=== PATIENT | male | born 1945 | race Caucasian/White ===

== ENCOUNTER 2022-02-09 15:41 | Inpatient (IN) ==
--- NOTE | 2022-02-09 16:05 | Emergency Department Note ---
Impression & Plan CVA (cerebral vascular accident), Elevated BUN ED Provider Note NAME: MILDRED YEUNG AGE: 76 SEX: M : 1945 ARRIVES VIA: Walk-In INFORMANT: Patient ED PROVIDER(S): Salomon Lopez DO CHIEF COMPLAINT: dizzy HPI: Patient is a 76-year-old male who presents the ER for dizziness which occurred or Wednesday. Patient was seen evaluated in the ER and disc harged. He had a follow-up appoint with a PCP today which included blood work and a MR of his head. Patient was then referred in by his PCP who performed this. They are not too sure what was abnormal but they were referred in for an abnormality. He denies any headache or change in vision. No weakness or numbness in the arms or legs. No chest pain or shortness of breath. No nausea vomiting or diarrhea. No dysuria urgency or frequency. He feels much better on his feet than he did then but is still slightly off. ROS: See above HPI for pertinent positives & negatives. A total of 10 systems reviewed and were otherwise negative. PAST MEDICAL HISTORY:See Below PAST SURGICAL HISTORY:See Below FAMILY HISTORY:See Below SOCIAL HISTORY:See Below HOME MEDICATIONS:See Below ALLERGIES:See Below VITALS:See Below PHYSICAL EXAMINATION: GENERAL: Sitting up in bed, alert, well appearing, well nourished, no distress, non-toxic EYE EXAM: normal conjunctiva. PERRL and EOM's intact. OROPHARYNX: no exudate, no erythema, lips, buccal mucosa, and tongue normal and mucous membranes are moist NECK: supple, no nuchal rigidity, no adenopathy, non-tender LUNGS: Clear to auscultation. Normal chest wall mechanics HEART: no murmurs, S1 normal and S2 normal ABDOMEN: abdomen soft, non-tender, normo-active bowel sounds, no masses, no rebound or guarding. UPPER EXTREMITIES: upper extremities are grossly normal. LOWER EXTREMITIES: No pitting edema. NEURO EXAM: Normal sensorium, cranial nerves II-XII intact, normal speech, no weakness of arms, no weakness of legs. No drift. Gross sensation intact. MEDICAL DECISION MAKING: Patient is a 76-year-old male who presents the ER for CVA. Patient was seen and evaluated and discharged follow-up with his PCP and had an MRI which showed a cerebellar stroke. Symptoms started several days ago. IV was established blood was obtained. Labs show no significant leukocytosis or anemia. BMP along with LFTs bilirubin and lipase was unremarkable. UA was clean. Covid was negative. Reviewed outpatient Discussed with the hospitalist for further evaluation. As the symptoms started about 3 to 4 days ago do not feel he needs to be transferred at this time. Did discuss with Violette brand who discussed with neurology and they admit the patient for further work-up. Triage Nursing notes reviewed. Limited review of prior medical records performed Vital Signs: reviewed and remarkable for HTN Differential diagnosis: Infection, dehydration, metabolic abnormality, hypo/hyperglycemia, electrolyte disturbance, anemia, hypoxia, cardiac sources, intracerebral event, toxicologic, neurologic, as well as other pathologies. ER treatment provided: See below Diagnostics interpreted by me: ECG: none Cardiac Monitoring: An order was placed for continuous cardiac monitoring. The monitor shows a rate of 70 with sinus rhythm. Laboratory studies: As stated above and show below. Imaging studies: MRI report was reviewed as an outpatient Consultation(s): Discussed with Violette brand for further evaluation Procedures: none Critical Care: None Past Med/Surg History Medical History Hypothyroidism (acquired) Surgical History History of hernia surgery Family History Father Stroke Social History Smoking Status: Never smoker Hx Alcohol Use: No Hx Substance Use: No Preferred Language: Niuean Communication Ability: Effective Forest Manager Required: No Current Living Situation: Spouse Other Information That Helps Us Care for You: No Feels Safe at Home: Yes Safety Concerns: Feels Safe At This Time Assistive Devices: Glasses Home Meds Home Medications Medication Instructions Recorded Confirmed levothyroxine 75 mcg tablet 75 mcg PO DAILY 02/09/22 02/09/22 Results & Data (ED) Vital Signs Vital Signs - 24 hr 02/09/22 15:43 02/09/22 15:52 02/09/22 16:29 Temperature 37.0 C Temperature Source Temporal Artery Scan Pulse Rate 91 H 73 Pulse Rhythm Regular Pulse Strength Normal Respiratory Rate 20 18 Respiratory Effort / Characteristics Non-Labored Spontaneous Respiratory Depth Normal Respiratory Pattern Regular Blood Pressure 152/70 H Blood Pressure Mean 97 Blood Pressure Position Sitting Pulse Oximetry 96 97 94 Oxygen Delivery Method Room Air Room Air Room Air Sepsis Recent Fever Within 48 Hours No Sepsis New/Unexplained Change in Mental Status No Sepsis Action Taken by Nursing No Action Required Laboratory Data Result diagrams: 02/09/22 16:30 02/09/22 16:30 Lab Results 02/09/22 02/09/22 02/09/22 Range/Units 14:30 16:07 16:29 WBC (4.8-10.8) K/uL RBC (4.7-6.1) M/uL Hgb (14.0-18.0) g/dL Hct (42-52) % MCV (80-100) fL MCH (25-34) pg MCHC (32-36) g/dL RDW Std Deviation (36.4-46.3) fL RDW Coeff of Lamar (11.5-14.5) % Plt Count (130-400) K/uL MPV (7.4-10.4) fL Immature Gran % (Auto) % Neut % (Auto) % Lymph % (Auto) % [place] % (Auto) % Eos % (Auto) % Baso % (Auto) % Neut # (Auto) (1.4-6.5) K/uL Lymph # (Auto) (1.2-3.4) K/uL [place] # (Auto) (0.11-0.59) K/uL Eos # (Auto) (0-0.5) K/uL Baso # (Auto) (0-0.2) K/uL Immature Gran # (Auto) (0.00-0.02) K/uL Sodium (136-145) mmol/L Potassium (3.5-5.1) mmol/L Chloride (98-107) mmol/L Carbon Dioxide (21-32) mmol/L Anion Gap (3-11) BUN (6-23) mg/dl Creatinine (0.6-1.4) mg/dl Est Cr Clr Drug Dosing ml/min Est GFR ( Amer) ml/min Est GFR (Non-Af Amer) ml/min BUN/Creatinine Ratio (10-20) Glucose (70-99(Fasting)) mg/dl Calcium (8.5-10.1) mg/dl Total Bilirubin (0.2-1.0) mg/dl AST (13-39) U/L ALT (7-52) U/L Alkaline Phosphatase (34-104) U/L Total Protein (6.0-8.3) gm/dl Albumin (3.4-5.0) gm/dl Globulin (2.5-4.0) gm/dl Albumin/Globulin Ratio (0.9-2) Lipase (11-82) U/L TSH 1.043 (0.300-4.500) uIu/ml Urine Color Yellow Urine Appearance Clear (Clear) Urine pH 5.0 (4.5-7.5) Ur Specific [place] > 1.045 H (1.000-1.030) Urine Protein Negative (Negative) Urine Glucose (UA) Negative (Negative) Urine Ketones Negative (Negative) Urine Blood Negative (Negative) Urine Nitrite Negative (Negative) Urine Bilirubin Negative (Negative) Urine Urobilinogen Negative (Negative) Ur Leukocyte Esterase Negative (Negative) SARS-CoV-2, RNA, NAAT NEGATIVE (NEGATIVE) 02/09/22 02/09/22 Range/Units 16:30 16:30 WBC 9.15 (4.8-10.8) K/uL RBC 4.22 L (4.7-6.1) M/uL Hgb 13.1 L (14.0-18.0) g/dL Hct 39.5 L (42-52) % MCV 93.6 (80-100) fL MCH 31.0 (25-34) pg MCHC 33.2 (32-36) g/dL RDW Std Deviation 50.3 H (36.4-46.3) fL RDW Coeff of Lamar 14.8 H (11.5-14.5) % Plt Count 248 (130-400) K/uL MPV 11.1 H (7.4-10.4) fL Immature Gran % (Auto) 0.2 % Neut % (Auto) 66.1 % Lymph % (Auto) 25.4 % [place] % (Auto) 6.1 % Eos % (Auto) 1.9 % Baso % (Auto) 0.3 % Neut # (Auto) 6.05 (1.4-6.5) K/uL Lymph # (Auto) 2.32 (1.2-3.4) K/uL [place] # (Auto) 0.56 (0.11-0.59) K/uL Eos # (Auto) 0.17 (0-0.5) K/uL Baso # (Auto) 0.03 (0-0.2) K/uL Immature Gran # (Auto) 0.02 (0.00-0.02) K/uL Sodium 137 (136-145) mmol/L Potassium 4.0 (3.5-5.1) mmol/L Chloride 103 (98-107) mmol/L Carbon Dioxide 28 (21-32) mmol/L Anion Gap 6 (3-11) BUN 26 H (6-23) mg/dl Creatinine 1.04 (0.6-1.4) mg/dl Est Cr Clr Drug Dosing 48.6 ml/min Est GFR ( Amer) 80.5 ml/min Est GFR (Non-Af Amer) 69.4 ml/min BUN/Creatinine Ratio 25.0 H (10-20) Glucose 122 H (70-99(Fasting)) mg/dl Calcium 9.5 (8.5-10.1) mg/dl Total Bilirubin 1.1 H (0.2-1.0) mg/dl AST 24 (13-39) U/L ALT 17 (7-52) U/L Alkaline Phosphatase 47 (34-104) U/L Total Protein 6.7 (6.0-8.3) gm/dl Albumin 4.2 (3.4-5.0) gm/dl Globulin 2.5 (2.5-4.0) gm/dl Albumin/Globulin Ratio 1.7 (0.9-2) Lipase 25 (11-82) U/L TSH (0.300-4.500) uIu/ml Urine Color Urine Appearance (Clear) Urine pH (4.5-7.5) Ur Specific [place] (1.000-1.030) Urine Protein (Negative) Urine Glucose (UA) (Negative) Urine Ketones (Negative) Urine Blood (Negative) Urine Nitrite (Negative) Urine Bilirubin (Negative) Urine Urobilinogen (Negative) Ur Leukocyte Esterase (Negative) SARS-CoV-2, RNA, NAAT (NEGATIVE) Administered Medications Aspirin (Aspirin 81 Mg Ectab) 81 mg PO DAILY TAY Stop: 03/11/22 18:59 Last Admin: 02/09/22 20:00 Dose: 81 mg Documented by: [id number] Atorvastatin Calcium (Atorvastatin 40 Mg Tab) 40 mg PO [facility] Stop: 03/11/22 18:44 Last Admin: 02/09/22 20:00 Dose: 40 mg Documented by: [id number] Clopidogrel Bisulfate (Clopidogrel Bisulfate 75 Mg Tab) 75 mg PO [facility] Stop: 03/11/22 18:59 Last Admin: 02/09/22 20:00 Dose: 75 mg Documented by: [id number] Discontinued Medications Aspirin (Aspirin 81 Mg Ectab) 81 mg PO NOW STA Stop: 02/09/22 17:30 Last Admin: 02/09/22 17:50 Dose: 81 mg Documented by: [id number] Clopidogrel Bisulfate (Clopidogrel Bisulfate 75 Mg Tab) 75 mg PO NOW ONE Stop: 02/09/22 17:30 Last Admin: 02/09/22 17:50 Dose: 75 mg Documented by: [id number] Discharge Plan Visit Data Chief Complaint: Abnormal Labs/Diagnostic Testing Stated Complaint: ABNORMAL TESTS ED Provider: Salomon Lopez Discharge Problem: CVA (cerebral vascular accident), Elevated BUN Patient Disposition: Admitted As Inpatient Discharge Instructions Interventions: ED Discharge Assessment Last Done: 02/09/22 18:06 Discharge Problem: CVA (cerebral vascular accident) Qualifiers: CVA mechanism: unspecified Qualified Code(s): I63.9 - Cerebral infarction, unspecified
[2022-02-09 16:32] LABS: Appearance Urine Clear (Clear); Bilirubin Urine Negative (Negative); Blood Urine Negative (Negative); Color Urine Yellow; Glucose Urine UA Negative (Negative); Ketones Urine Negative (Negative); Leukocyte Esterase Urine Negative (Negative); Nitrite Urine Negative (Negative); Protein Urine Negative (Negative); Specific Gravity Urine > 1.045 (1.000-1.030); Urobilinogen Urine Negative (Negative)
--- NOTE | 2022-02-09 16:35 | History & Physical Report ---
Date of Service February 09, 2022 Assessment & Plan (1) CVA (cerebral vascular accident): Plan: Admit to telemetry Patient developed dizziness and difficulty ambulating about 3 days ago. Dizziness has resolved however ambulatory dysfunction has persisted. 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 Discussed with Dr. Sherman - lori ASA, Plavix, statin Echo Repeat head CT in the a.m. 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 Patient was seen in the ED on 02/06 for evaluation of sudden onset dizziness and difficulty walking. Patient had a head CT that was unremarkable and was discharged home to follow-up with PCP. Patient was seen in PCP office today and noted that he was still having difficulty ambulating, however dizziness had resolved. Brain MRI and head and neck CTs were obtained as an outpatient with results previously noted. Patient was referred to the ED for further evaluation. Patient denies headache and blurred vision. No lightheadedness or syncopal event. Denies chest pain or shortness of breath. No abdominal pain, nausea, vomiting, diarrhea. No other recent illnesses, fevers, chills. Denies urinary symptoms. In the ED, patient is hemodynamically stable. Labs are unremarkable. Home Medications Medication Instructions Recorded Confirmed Type levothyroxine 75 mcg tablet 75 mcg PO DAILY 02/09/22 02/09/22 History Past Med/Surg History Medical History Hypothyroidism (acquired) Surgical History History of hernia surgery Family History Father Stroke Social History Smoking Status: Never smoker Hx Alcohol Use: No Hx Substance Use: No Preferred Language: Greek Communication Ability: Effective Environmental Remediation Specialist Required: No marital status: Current Living Situation: Spouse How many Children do You have: 1 Other Information That Helps Us Care for You: No Feels Safe at Home: Yes Safety Concerns: Feels Safe At This Time Assistive Devices: None Review of Systems Review of Systems: ROS per HPI, all other systems reviewed and negative Physical Exam Physical Exam: please refer to Dr. Singh's addendum for physical exam Results & Data Results & Data ([facility]) Vital Signs (Past 12 Hours) Vital Signs Temp Pulse Resp BP Pulse Ox 02/09/22 16:29 94 02/09/22 15:52 73 18 97 02/09/22 15:43 37.0 C 91 H 20 152/70 H 96 Laboratory Results Short CBC 02/09/22 Range/Units 16:30 WBC 9.15 (4.8-10.8) K/uL Hgb 13.1 L (14.0-18.0) g/dL Hct 39.5 L (42-52) % Plt Count 248 (130-400) K/uL BMP 02/09/22 16:30 Sodium 137 Potassium 4.0 Chloride 103 Carbon Dioxide 28 BUN 26 H Creatinine 1.04 Glucose 122 H Calcium 9.5 Liver Function 02/09/22 Range/Units 16:30 Total Bilirubin 1.1 H (0.2-1.0) mg/dl AST 24 (13-39) U/L ALT 17 (7-52) U/L Alkaline Phosphatase 47 (34-104) U/L Albumin 4.2 (3.4-5.0) gm/dl Urine 02/09/22 Range/Units 16:07 Urine Color Yellow Urine Appearance Clear (Clear) Urine pH 5.0 (4.5-7.5) Ur Specific [place] > 1.045 H (1.000-1.030) Urine Protein Negative (Negative) Urine Glucose (UA) Negative (Negative) Diagnostic Findings Outpatient brain MRI 02/09/2022 IMPRESSION 1. Restricted diffusion within the posteroinferior right cerebellum, worrisome for an acute to early subacute infarction. Mild localized mass effect. 2. Mild to moderate global volume loss and findings most commonly associated with mild chronic small vessel disease. 3. Abnormal right vertebral artery flow void. Please refer to the CTA of the head neck dated 02/09/2022. Outpatient head and neck CTA 02/09/2022 IMPRESSION 1. Subacute infarction within the posteroinferior right cerebellum. 2. 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 Recanalization of the V2 segment of the right vertebral artery at the level of C3-C4. Narrowing of the V3 segment of the right vertebral artery. 3. Mild to moderate stenosis of the origin of the left vertebral artery. 4. Additional findings as described above. Code Status & VTE Plan Code Status Patient is a full code as per my discussion with him. Patient states that his , Sheyla, would make decisions for him on his behalf if he were to be unable to. Supervising Physician Co-Signing Physician Notes Patient is a 76-year-old male with history of hypothyroidism and no other significant past medical history presents with history of dizziness, ambulatory dysfunction 3 days duration. Patient had outpatient MRI brain head and neck CTA suggestive of acute to subacute CVA. Patient had a fall secondary to dizziness 3 days ago resulting in mild head trauma. He denies any facial deformity, dysphagia, bowel or bladder incontinence, loss of consciousness, change in vision, chest pain, shortness of breath, nausea, abdominal pain, fever, chills. He denies any focal weakness as well. Please review HPI for complete details of presentation. Blood pressure is mildly elevated while in ED. Blood work fairly unremarkable. On patient imaging studies reviewed. Physical Exam: Vitals signs as noted above General Appearance:Moderately built and nourished, no apparent distress Head: normocephalic, Atraumatic Eyes: normal inspection, EOMI Neck: supple, Trachea midline Respiratory/Chest: Normal breath sounds, CTA, No accessory muscle use Cardiovascular: S1, S2, No murmur Abdomen/GI:Soft, Non tender, Bowel sounds present Extremities/Musculoskeletal:normal inspection, no edema Neurologic/Psych:AAOX3, grossly no focal neurological deficits, + dysdiadochokinesia Skin: normal color, warm Acute CVA Not a candidate for tPA Stroke work up including lipid panel, A1C, ECHO Speech and swallow eval Start aspirin, plavix, Lipitor Neuro checks, Neurology consult PT/OT Allow permissive HTN in setting of acute CVA I personally reviewed the record. Patient is interviewed and examined at bedside. Patient's care is coordinated with Violette Hernandez PHYSICAL PLANT MANAGER. Please refer to the documentation above for details of patient's presentation and for discussion of other issues.
[2022-02-09 16:42] LABS: Basophils # (auto) 0.03 K/uL (0-0.2); Basophils % (auto) 0.3 %; Eosinophils # (auto) 0.17 K/uL (0-0.5); Eosinophils % (auto) 1.9 %; Hematocrit (blood only) 39.5 % (42-52); Hemoglobin 13.1 g/dL (14.0-18.0); Immature Granulocytes # (auto) 0.02 K/uL (0.00-0.02); Immature Granulocytes % (auto) 0.2 %; Lymphocytes # (auto) 2.32 K/uL (1.2-3.4); Lymphocytes % (auto) 25.4 %; Mean Corpuscular Hgb Conc 33.2 g/dL (32-36); Mean Corpuscular Volume 93.6 fL (80-100); Mean Platelet Volume 11.1 fL (7.4-10.4); Monocytes # (auto) 0.56 K/uL (0.11-0.59); Monocytes % (auto) 6.1 %; Neutrophils # (auto) 6.05 K/uL (1.4-6.5); Neutrophils % (auto) 66.1 %; Platelet Count 248 K/uL (130-400); RDW Coefficient of Variation 14.8 % (11.5-14.5); RDW Standard Deviation 50.3 fL (36.4-46.3); Red Blood Count 4.22 M/uL (4.7-6.1); White Blood Count 9.15 K/uL (4.8-10.8)
[2022-02-09 16:58] LABS: Albumin Globulin Ratio 1.7 (0.9-2); Albumin Level 4.2 gm/dl (3.4-5.0); Bilirubin,Total 1.1 mg/dl (0.2-1.0); Calcium 9.5 mg/dl (8.5-10.1); Creatinine Clr Calc Pharmacy 48.6 ml/min; Est GFR (African American) 80.5 ml/min; Est GFR (Non-African American) 69.4 ml/min; Globulin 2.5 gm/dl (2.5-4.0); Total Protein 6.7 gm/dl (6.0-8.3)
[2022-02-09] MEDS ORDERED: ASPIRIN 81 MG ECTAB PO STA (17:29)
[2022-02-09] MEDS ORDERED: CLOPIDOGREL BISULFATE 75 MG TAB PO ONE (17:29)
[2022-02-09] MEDS ORDERED: PHARMACIST DISCHARGE MED REC CONSULT PRN (18:24)
[2022-02-09] MEDS ORDERED: ACETAMINOPHEN 325 MG TAB PO PRN (18:24)
[2022-02-09] MEDS ORDERED: INFLUENZA VACCINE HIGH DOSE PF 65+ 0.7 ML SYR IM ONE (20:00)
[2022-02-09] MEDS: ASPIRIN 81 MG ECTAB PO SCH (20:00)
[2022-02-09] MEDS: ATORVASTATIN 40 MG TAB PO SCH (20:00)
[2022-02-09] MEDS: CLOPIDOGREL BISULFATE 75 MG TAB PO SCH (20:00)
[2022-02-10] MEDS ORDERED: LEVOTHYROXINE SODIUM 75 MCG TABLET PO SCH (06:30)
[2022-02-10 06:34] LABS: Basophils # (auto) 0.02 K/uL (0-0.2); Basophils % (auto) 0.3 %; Eosinophils % (auto) 5.3 %; Hemoglobin 11.6 g/dL (14.0-18.0); Immature Granulocytes # (auto) 0.01 K/uL (0.00-0.02); Immature Granulocytes % (auto) 0.1 %; Lymphocytes # (auto) 1.71 K/uL (1.2-3.4); Lymphocytes % (auto) 22.7 %; Mean Corpuscular Hemoglobin 30.8 pg (25-34); Mean Corpuscular Hgb Conc 33.1 g/dL (32-36); Mean Corpuscular Volume 92.8 fL (80-100); Mean Platelet Volume 10.7 fL (7.4-10.4); Monocytes # (auto) 0.71 K/uL (0.11-0.59); Monocytes % (auto) 9.4 %; Neutrophils # (auto) 4.68 K/uL (1.4-6.5); Neutrophils % (auto) 62.2 %; Platelet Count 234 K/uL (130-400); RDW Coefficient of Variation 14.6 % (11.5-14.5); RDW Standard Deviation 49.6 fL (36.4-46.3); Red Blood Count 3.77 M/uL (4.7-6.1); White Blood Count 7.53 K/uL (4.8-10.8)
[2022-02-10 07:02] LABS: BUN Creatinine Ratio 29.5 (10-20); Calcium 9.2 mg/dl (8.5-10.1); Chol HDL Ratio 3.1 (0-5); Creatinine Clr Calc Pharmacy 48.7 ml/min; Est GFR (African American) 89.8 ml/min; Est GFR (Non-African American) 77.4 ml/min; Potassium 4.7 mmol/L (3.5-5.1)
[2022-02-10 08:10] LABS: Estimated Average Glucose 117 mg/dl; Hemoglobin A1C 5.7 % (4.5-5.6)
--- NOTE | 2022-02-10 08:15 | CT Scan Report ---
CT head/brain wo con CLINICAL HISTORY: 76 years-old Male with f/u CVA. Acute strokelike symptoms. Follow up study in a pa tient with acute right cerebellar infarct. TECHNIQUE: Multiple axial CT images of the head were obtained without contrast. A dose lowering tech nique was utilized adhering to the principles of ALARA. CT DOSE: 537.48 mGy.cm COMPARISON: Brain MRI from outside institution (images only without report) 02/09/2022, head CT 022. FINDINGS: No acute intracranial hemorrhage, midline shift, intracranial mass, hydrocephalus, or abnormal extra- axial collection. Cytotoxic edema related to an acute infarct of the medial mid to inferior right cer ebellar hemisphere measuring up to approximately 3.4 x 3.7 cm is unchanged. No cerebellar tonsillar h erniation. Mild involutional changes. Minimal T2/FLAIR hyperintense foci throughout the white matter are suggestive of chronic microvascular ischemic disease. The calvarium is intact. Prior left-sided lens repair. The paranasal sinuses, mastoid air cells, and middle ear cavities are clear. IMPRESSION: Unchanged large acute infarct of the right cerebellar hemisphere. No acute intracranial hemorrhage. ACT 112: Negative or not required by law. The above report was generated using voice recognition software. It may contain grammatical, syntax o r spelling errors. Electronically signed by: Gagandeep Ochoa M.D. 02/10/2022 8:13 AM
[2022-02-10] MEDS: ATORVASTATIN 40 MG TAB PO SCH (08:58)
[2022-02-10] MEDS: ASPIRIN 81 MG ECTAB PO SCH (08:58)
[2022-02-10] MEDS: CLOPIDOGREL BISULFATE 75 MG TAB PO SCH (08:58)
--- NOTE | 2022-02-10 12:32 | Neurology Consultation ---
Date of Consultation February 10, 2022 Assessment & Plan (1) CVA (cerebral vascular accident): 1. start plavix 75 mg and aspirin 81 mg daily then aspirin 81 mg for life 2. MRI brain - right cerebellum stroke 3. occlusion V1-2 right vert. 4. PT/OT speech for discharge needs 5. optimize HTN HLD LDL <70 6. ZIO as outpatient will follow up with neurology 4-6 weeks ok to discharge when medically stable. Supervising Physician Co-Signing Physician Notes Patient was seen examined. Admitted with right cerebellar stroke due to right vertebral artery occlusion. No ataxia with finger to nose. No prior history of stroke. Start DAP x21 days then ASA 81 mg daily. Start Liptor 40 mg daily. Zio patch as outpatient. Follow up with Neurology in 8 weeks. 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 He was seen in the ED on 02/06 for evaluation of sudden onset dizziness and difficulty walking.At that time his head CT that was unremarkable and was discharged home to follow- up with PCP. He was seen in PCP office today and noted that he was still having difficulty ambulating, however dizziness had resolved. Brain MRI and head and neck CTs were obtained as an outpatient, and referred to the ED for further evaluation. He is currently sitting bedside and thinks he is near his baseline. He has been OOB to the bathroom with no assistance and no difficulty. denies CP, SOB, abdom inal pain, one sided weakness, numbness tingling vision changes. Home Medications Medication Instructions Recorded Confirmed Type levothyroxine 75 mcg tablet 75 mcg PO DAILY 02/09/22 02/09/22 History aspirin 81 mg tablet,delayed 81 mg PO DAILY #30 tab 02/10/22 Rx release atorvastatin 40 mg tablet 40 mg PO QAM #30 tab 02/10/22 Rx clopidogrel 75 mg tablet 75 mg PO QAM #20 tab 02/10/22 Rx Patient History Medical History Hypothyroidism (acquired) Surgical History History of hernia surgery Family History Father Stroke Social History Smoking Status: Never smoker Hx Alcohol Use: No Hx Substance Use: No Preferred Language: [place] Communication Ability: Effective 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 Laborer Required: No marital status: Current Living Situation: Spouse How many Children do You have: 1 Other Information That Helps Us Care for You: No Feels Safe at Home: Yes Safety Concerns: Feels Safe At This Time Assistive Devices: None Review of Systems Review of Systems: All systems reviewed & are unremarkable except as noted in HPI & below Physical Exam Physical Exam: Physical Exam: Constitutional: appearance nourished, healthy Ears, Nose, Mouth and Throat: mucous membranes moist, no injection and skin normal, eyes normal Cardiovascular: normal S-1 and S-2 and regular rate and rhythm Respiratory: clear to auscultation (CTA) and no rales, ronchi or wheeze Musculoskeletal: no peripheral edema and good distal pulses Skin: no stigmata of neurocutaneous disease noted and normal and intact Eyes: extraocular muscles intact (EOMI) and pupils equal, round and reactive to light (PERRL) NEUROLOGIC EXAMINATION: Mental status: Alert and interactive Oriented to full date and location Oriented to person Speech fluent with no evidence of aphasia Cranial Nerves smile eye brow raise symmetric Reflexes: Deep tendon reflexes were symmetrical and graded 2/5. Sensory: intact to light touch Coordination: finger to nose heel to cutler intact Gait/Stance: Posture normal. Gait normal: with steady with steps, base, turning, and tandem gait. Motor: Negative for pronator drift of out stretched arms with eyes closed. Strength: hand plug stitcher biceps tricep bilaterally 5/5, hip flex 5/5 Results & Data ([facility]) Vital Signs (Past 12 Hours) Vital Signs Temp Pulse Pulse Resp BP Pulse Ox 02/10/22 11:30 36.8 C 69 19 114/63 98 02/10/22 08:09 36.7 C 62 19 167/70 H 97 02/10/22 08:00 56 L 02/10/22 04:19 36.6 C 50 L 18 156/71 H 97 Laboratory Results Abnormal lab results 02/09/22 02/09/22 02/09/22 Range/Units 16:07 16:30 16:30 RBC 4.22 L (4.7-6.1) M/uL Hgb 13.1 L (14.0-18.0) g/dL Hct 39.5 L (42-52) % RDW Std Deviation 50.3 H (36.4-46.3) fL RDW Coeff of Lamar 14.8 H (11.5-14.5) % MPV 11.1 H (7.4-10.4) fL [place] # (Auto) (0.11-0.59) K/uL BUN 26 H (6-23) mg/dl BUN/Creatinine Ratio 25.0 H (10-20) Glucose 122 H (70-99(Fasting)) mg/dl Hemoglobin A1c (4.5-5.6) % Total Bilirubin 1.1 H (0.2-1.0) mg/dl Ur Specific [place] > 1.045 H (1.000-1.030) 02/10/22 02/10/22 02/10/22 Range/Units 06:18 06:18 06:18 RBC 3.77 L (4.7-6.1) M/uL Hgb 11.6 L (14.0-18.0) g/dL Hct 35.0 L (42-52) % RDW Std Deviation 49.6 H (36.4-46.3) fL RDW Coeff of Lamar 14.6 H (11.5-14.5) % MPV 10.7 H (7.4-10.4) fL [place] # (Auto) 0.71 H (0.11-0.59) K/uL BUN 28 H (6-23) mg/dl BUN/Creatinine Ratio 29.5 H (10-20) Glucose (70-99(Fasting)) mg/dl Hemoglobin A1c 5.7 H (4.5-5.6) % Total Bilirubin (0.2-1.0) mg/dl Ur Specific [place] (1.000-1.030) Diagnostic Findings CT CTA head/neck- EPIC 02/09/22-Subacute infarction within the posteroinferior right cerebellum. 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 Recanalization of the V2 segment of the right vertebral artery at the level of C3-C4. Narrowing of the V3 segment of the right vertebral artery. Mild to moderate stenosis of the origin of the left vertebral artery. MRI brain without EPIC 02/09/22-Restricted diffusion within the posteroinferior right cerebellum, worrisome for an acute to early subacute infarction. Mild localized mass effect. Mild to moderate global volume loss and findings most commonly associated with mild chronic small vessel disease. Abnormal right vertebral artery flow void. TTE- 55-60% EF no ASD (1) CVA (cerebral vascular accident) CVA mechanism: unspecified Qualified Code(s): I63.9 - Cerebral infarction, unspecified
--- NOTE | 2022-02-10 13:37 | Hospitalist Progress Note ---
Date of Service February 10, 2022 Assessment & Plan (1) CVA (cerebral vascular accident): Plan: Acute CVA --Outpatient brain MRI and head and neck CTAs showing right cerebellum acute to early subacute infarction and V1 and V2 segments of the right vertebral artery are occluded. --CT Head:Unchanged large acute infarct of the right cerebellar hemisphere. No acute intracranial hemorrhage. --ECHO:No ASD. EF 55 to 60%. Mild concentric LVH. Grade 1 diastolic dysfunction. Mild MR. Mild to moderate TR. --LDL:117 --HbA1C:5.7 --Appreciate Neurology Input --PT/OT Speech Eval completed --Continue Aspirin, Plavix, Statin --Needs follow up with Neurology upon discharge Prediabetes HbA1C:5.7 (2) Hypothyroidism (acquired): Plan: TSH 1.26 continue levothyroxine (3) DVT prophylaxis: Plan: SCDs for now Admission and Anticipated Discharge Date Admission Date: February 09, 2022 Subjective Patient is seen and examined at bedside States feeling much better today Denies any focal weakness, change in vision, slurred speech, headache, dizziness, chest pain, shortness of breath, nausea, abdominal pain Offers no other complaints Discussed with Neurology today Review of Systems Review of Systems: All systems reviewed & are unremarkable except as noted in Subjective Physical Exam Physical Exam: Physical Exam: Vitals signs as noted above General Appearance:Moderately built and nourished, no apparent distress Head: normocephalic, Atraumatic Eyes: normal inspection, EOMI Neck: supple, Trachea midline Respiratory/Chest: Normal breath sounds, CTA, No accessory muscle use Cardiovascular: S1, S2, No murmur Abdomen/GI:Soft, Non tender, Bowel sounds present Extremities/Musculoskeletal:normal inspection, no edema Neurologic/Psych:AAOX3, grossly no focal neurological deficits, + dysdiadochokinesia Skin: normal color, warm Results & Data Results & Data ([facility]) Vital Signs (Past 12 Hours) Vital Signs Temp Pulse Pulse Resp BP Pulse Ox 02/10/22 11:30 36.8 C 69 19 114/63 98 02/10/22 08:09 36.7 C 62 19 167/70 H 97 02/10/22 08:00 56 L 02/10/22 04:19 36.6 C 50 L 18 156/71 H 97 Laboratory Results Short CBC 02/09/22 02/10/22 Range/Units 16:30 06:18 WBC 9.15 7.53 (4.8-10.8) K/uL Hgb 13.1 L 11.6 L (14.0-18.0) g/dL Hct 39.5 L 35.0 L (42-52) % Plt Count 248 234 (130-400) K/uL BMP 02/09/22 02/10/22 16:30 06:18 Sodium 137 138 Potassium 4.0 4.7 Chloride 103 105 Carbon Dioxide 28 29 BUN 26 H 28 H Creatinine 1.04 0.95 Glucose 122 H 93 Calcium 9.5 9.2 Liver Function 02/09/22 Range/Units 16:30 Total Bilirubin 1.1 H (0.2-1.0) mg/dl AST 24 (13-39) U/L ALT 17 (7-52) U/L Alkaline Phosphatase 47 (34-104) U/L Albumin 4.2 (3.4-5.0) gm/dl Urine 02/09/22 Range/Units 16:07 Urine Color Yellow Urine Appearance Clear (Clear) Urine pH 5.0 (4.5-7.5) Ur Specific [place] > 1.045 H (1.000-1.030) Urine Protein Negative (Negative) Urine Glucose (UA) Negative (Negative) (1) CVA (cerebral vascular accident) CVA mechanism: unspecified Qualified Code(s): I63.9 - Cerebral infarction, unspecified
[2022-02-10] MEDS ORDERED: STROKE PATIENT DISCHARGE STA (16:23)
--- NOTE | 2022-02-10 16:28 | Discharge Summary ---
Date of Service February 10, 2022 Admission HPI Per Admitting Provider 76 year old male with PMH hypothyroidism and other problems listed below who presents to the ED by referral of PCP for evaluation after outpatient brain MRI and head/neck CTA showed right cerebellum acute to early subacute infarction and V1 and V2 segments of the right vertebral artery are occluded. Patient was seen in the ED on 02/06 for evaluation of sudden onset dizziness and difficulty walking. Patient had a head CT that was unremarkable and was discharged home to follow-up with PCP. Patient was seen in PCP office today and noted that he was still having difficulty ambulating, however dizziness had resolved. Brain MRI and head and neck CTs were obtained as an outpatient with results previously noted. Patient was referred to the ED for further evaluation. Patient denies headache and blurred vision. No lightheadedness or syncopal event. Denies chest pain or shortness of breath. No abdominal pain, nausea, vomiting, diarrhea. No other recent illnesses, fevers, chills. Denies urinary symptoms. In the ED, patient is hemodynamically stable. Labs are unremarkable. Admission Exam Per Admitting Provider Physical Exam: Vitals signs as noted above General Appearance:Moderately built and nourished, no apparent distress Head: normocephalic, Atraumatic Eyes: normal inspection, EOMI Neck: supple, Trachea midline Respiratory/Chest: Normal breath sounds, CTA, No accessory muscle use Cardiovascular: S1, S2, No murmur Abdomen/GI:Soft, Non tender, Bowel sounds present Extremities/Musculoskeletal:normal inspection, no edema Neurologic/Psych:AAOX3, grossly no focal neurological deficits, + dysdiadochokinesia Skin: normal color, warm Principal Diagnosis Acute cerebrovascular accident Discharge Data Consultations 02/09/22 16:35 ED Decision to Admit Stat 02/09/22 18:24 Consult Neurology Routine Ordered Studies 02/10/22 08:00 CT head/brain wo con Routine Hospital Course (1) CVA (cerebral vascular accident): (1) CVA (cerebral vascular accident): Plan: Acute CVA --Outpatient brain MRI and head and neck CTAs showing right cerebellum acute to early subacute infarction and V1 and V2 segments of the right vertebral artery are occluded. --CT Head:Unchanged large acute infarct of the right cerebellar hemisphere. No acute intracranial hemorrhage. --ECHO:No ASD. EF 55 to 60%. Mild concentric LVH. Grade 1 diastolic dysfunction. Mild MR. Mild to moderate TR. --LDL:117 --HbA1C:5.7 --Appreciate Neurology Input --PT/OT Speech Eval completed --Continue Aspirin, Plavix, Statin --Needs follow up with Neurology upon discharge Prediabetes HbA1C:5.7 (2) Hypothyroidism (acquired): Plan: TSH 1.26 continue levothyroxine (3) DVT prophylaxis: Plan: SCDs for now Total Time Total Time Spent Total Time Spent (In Minutes): 43 minutes Discharge Plan Discharge Items Patient Disposition: Home - Self-Care Reason For Visit: CVA Discharge Diagnosis: Stroke Activity: Per Instructions section Exercise/Sports: Gradually increase as tolerated Non-emergency contact: Primary Care Provider and Neurologist Call non-emergency contact if: you have any medication questions, your symptoms worsen, your pain is concerning for you and you have a fever Follow-up/Referrals: Giana Tan PA-C [Physician Auto Collision Repair Instructor] - (Date & Time 03/09/2022 11:20 AM Provider Giana Tan PA-C Department Neurology [facility] ) Ismael Vasquez PA-C [Primary Care Provider] - (Date & Time 02/16/2022 11:00 AM Provider Mary Grace Jain MD Department General Internal Medicine [facility] ) Diet: Heart Healthy Addtl Attending Provider Instructions: Follow up with your Primary Care Physician Ismael Vasquez PA-C on 02/16/2022 11:00 AM Follow up with your Neurologist Giana Tan PA-C on 03/09/2022 11:20 AM --Take aspirin 81 mg and clopidogrel 75 mg daily for 3 weeks and then start taking aspirin 81 mg daily only --Start taking Lipitor 40 mg daily. Seek immediate medical attention if your symptoms reoccur or worsen Please take all medications as instructed on discharge list below. Please call if you have any questions or problems. You can reach a [facility] hospitalist on duty at [facility] 24 hours a day by calling [phone] Risk Factors for Stroke: You can reduce your chances of stroke by working with your medical provider to adopt a healthy lifestyle. Some specific ways to lower your chance of stroke are: * If you are a smoker, now is the time to stop smoking cigarettes * If you are diabetic, improve the control of your blood sugars * Avoid excessive amounts of alcohol * Control high blood pressure * Lose weight if you are overweight * Be sure to lead an active lifestyle * Eat a healthy diet low in salt, cholesterol and fat You should know about other risk factors for stroke that you are unable to control. These include: * Age 55 years or older * Male gender * Certain racial groups: , or / * Family History of Stroke, Mini stroke or Heart Attack * Sickle Cell Disease Follow Up: It is important for you to keep your follow up appointments with your medical provider. Who to Call and When: Medical Emergencies: Call 911 immediately if you experience any of the following warning signs and symptoms of Stroke: * Sudden numbness or weakness of the face, arm or leg, especially on one side of the body * Sudden confusion, trouble speaking or understanding * Sudden trouble seeing in one or both eyes * Sudden trouble walking, dizziness, loss of balance or coordination * Sudden severe headache with no cause Do not delay calling 911 if you experience any warning signs or symptoms of a stroke. Delay in seeking medical attention may affect what treatments can be given to you. . Pending Studies at Discharge: No Stand-Alone Forms: My [facility] [employer], Work/School Release, Smoking Cessation Medications and DC Order Prescriptions: New clopidogrel 75 mg Tablet 75 mg PO QAM Qty: 20 RF: 0 atorvastatin 40 mg Tablet 40 mg PO QAM Qty: 30 RF: 1 aspirin 81 mg Tablet,Delayed Release (Dr/Ec) 81 mg PO DAILY Qty: 30 RF: 1 Continued levothyroxine 75 mcg tablet 75 mcg PO DAILY RF: 0 Discharge Orders: Discharge Order (Routine); Ordered 02/10/22 Ordered By: Vijay Singh Admission Data Admit Date/Time: 02/09/22 17:01 Attending Provider: Vijay Singh Admit Provider: Vijay Singh Primary Care Provider: Ismael Vasquez Other Providers: Vijay Singh ; Michele Sherman
--- NOTE | 2022-02-10 17:01 | Pharmacy Report ---
Pharmacist Stroke Counseling - Date of Service February 10, 2022 - Scope: Pharmacy has been consulted to provide medication discharge counseling for this patient admitted with ischemic stroke as per the Pharmacist Discharge Counseling for Stroke Patients Protocol. - Medications on Discharge: Home Medications Medication Instructions Recorded Confirmed levothyroxine 75 mcg tablet 75 mcg PO DAILY 02/09/22 02/09/22 New Rx's Medication Instructions Recorded aspirin 81 mg tablet,delayed 81 mg PO DAILY #30 tab 02/10/22 release atorvastatin 40 mg tablet 40 mg PO QAM #30 tab 02/10/22 clopidogrel 75 mg tablet 75 mg PO QAM #20 tab 02/10/22 - Action: The above medications, specifically ones for stroke treatment/prophylaxis, have been reviewed in detail with the patient and/or patient sales representative metals(s) prior to discharge. This includes indication, common adverse reactions, drug interactions, and medication administration. Medication counseling has been employed using the teach-back method to ensure understanding. - Outcome: The patient and/or patient sales representative metals(s) have demonstrated understanding of the medications. Additional comments: - Pillbox provided - Reviewed new medications (atorvastatin, aspirin, and clopidogrel) - Plavix and aspirin for 20 days and then aspirin alone - No obvious barriers to medication compliance identified Thank you for allowing pharmacy to be involved in the care of this patient. Please call [phone] with any additional questions
== END 2022-02-10 17:58 | disposition home or self-care (01) | DRG 66 ==
LOC: ED 15:41 → 2S 17:01 → OBSVTOIN 17:01 → INTOOBSV 17:01 → 2S 18:06

== ENCOUNTER 2022-08-11 19:43 | Inpatient (IN) ==
[2022-08-11 21:23] LABS: INR 1.1 (0.9-1.1); Partial Thromboplastin Ratio 0.8; Partial Thromboplastin Time 22.2 Seconds (21.0-31.0); Prothrombin Time 11.4 Seconds (9.0-12.0)
[2022-08-11] MEDS ORDERED: metroNIDAZOLE 500 MG/100 ML BAG IV STA (21:29)
[2022-08-11] MEDS ORDERED: levoFLOXacin/D5W 750 MG/150 ML BAG IV STA (21:29)
[2022-08-11 21:36] LABS: Troponin I High Sensitivity 13.5 pg/ml (0-20)
[2022-08-11 21:39] LABS: Albumin Globulin Ratio 0.7 (0.9-2); Albumin Level 2.6 gm/dl (3.4-5.0); BUN Creatinine Ratio 25.9 (10-20); Bilirubin,Total 0.6 mg/dl (0.2-1.0); Est GFR (African American) 99.4 ml/min; Est GFR (Non-African American) 85.7 ml/min; Globulin 3.8 gm/dl (2.5-4.0); Magnesium 1.9 mg/dl (1.7-2.4); Potassium 4.6 mmol/L (3.5-5.1); Total Protein 6.4 gm/dl (6.0-8.3)
[2022-08-11 21:43] LABS: Hematocrit (blood only) 22.1 % (40.1-51.0); Hemoglobin 7.1 g/dl (14.0-18.0); White Blood Count 15.67 K/ul (4.8-10.8)
[2022-08-11] MEDS ORDERED: SODIUM CHLORIDE 0.9% 250 ML IV PRN (21:45)
[2022-08-11 21:56] LABS: Basophils # (auto) 0.08 K/uL (0-0.2); Basophils % (auto) 0.5 %; Echinocytes 1+; Eosinophils # (auto) 0.08 K/uL (0-0.50); Eosinophils % (auto) 0.5 %; Immature Granulocytes # (auto) 0.14 K/uL (0.00-0.02); Immature Granulocytes % (auto) 0.9 %; Lymphocytes # (auto) 1.16 K/uL (1.2-3.4); Lymphocytes % (auto) 7.4 %; Mean Corpuscular Hemoglobin 26.2 pg (25.0-34.0); Mean Corpuscular Hgb Conc 32.1 g/dL (32.0-36.0); Mean Corpuscular Volume 81.5 fL (80.0-100.0); Mean Platelet Volume 10.2 fL (9.4-12.4); Monocytes # (auto) 1.23 K/uL (0.24-0.82); Monocytes % (auto) 7.8 %; Neutrophils # (auto) 12.98 K/uL (1.4-6.5); Neutrophils % (auto) 82.9 %; Platelet Count 587 K/uL (130-400); RDW Coefficient of Variation 15.8 % (11.5-14.5); RDW Standard Deviation 46.5 fL (36.4-46.3); Red Blood Count 2.71 M/uL (4.63-6.08); Toxic Vacuolation 1+
[2022-08-11] MEDS ORDERED: OPTIRAY 300 100mL IV ONE (22:24)
--- NOTE | 2022-08-12 00:01 | History & Physical Report ---
Date of Service August 12, 2022 Assessment & Plan (1) Abscess of lung: Plan: No overt sepsis currently. 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 Dilutional FOBT done at the ER negative hx CVA/PVD HTN, BP on the lower side hyperlipidemia on statin Rx hx PSVT hypothyroidism, recent outpatient TSH slight elevated mood disorder, at baseline prediabetes, hemoglobin A1c of 5.03 February 2020 Medical telemetry given hyponatremia CS, Levaquin, Flagyl for pulmonary abscess, presumptive community-acquired infection Pulmonary consult RE lung abscess (ER provider already in touch with Dr. Babin). N.p.o. until patient seen by rehabilitation attendant in a.m. in anticipation of procedure. Hyponatremia work-up Lasix Update TTE Nephrology consult if without improvement Anemia work-up Transfuse PRBC to maintain hemoglobin above 8 given history CVA DVT prophylaxis with Lovenox subcu DNR Patient request for daughter to updated of progress. Myke Soco Hughes, contact #[phone]. Text document was generated using [employer] voice recognition software. It may contain grammatical or spelling errors. Kindly contact undersigned for clarification of any documentation item in question. History of Present Illness Chief Complaint: Sent by doctor, abnormal blood work and chest x-ray Primary Care Provider: Dr. Krishna History obtained from patient and records. Medical history significant for CVA, HTN, valvular heart disease (moderate TR, mild TR TTE 01/2022), hyperlipidemia, PSVT, PVD, hypothyroidism, mood disorder, prediabetes, chronic anemia (baseline hemoglobin of 11). Last confinement January 2022 for cerebellar stroke. 3 weeks ago, patient noted bilateral leg swelling without pain. Denies abdominal pain. No unusual weight gain as per patient. Denies black/bloody stools. Denies EtOH intake. Denies polydipsia. At about the same time, patient noted junky cough symptoms productive of yellow sputum. Some shortness of breath. Patient denies aspiration. Not sure about sick contacts. Patient seen at PCP's office yesterday. Inguinal adenopathy appreciated on provider exam along with leg swelling. TTE, Cardiology referral contemplated for bilateral leg edema. Patient instructed to take extra Lasix for next few days. Outpatient blood work and x-rays requested. Chest x-ray showed: 1. Lobar atelectasis of the right middle lobe. 2. Patchy opacification in the left lower lobe common, nonspecific, and could represent either airspace consolidation or subsegmental atelectasis. Abnormal outpatient labs noted hemoglobin noted to be 6.6, sodium 131, TSH 7.81., BNP noted to be 1000 LE venous Dopplers without DVT on both legs, Ramachandran's cyst on the left. CT abdomen pelvis showed 1. Dense consolidation within the right middle lobe, partially imaged on this exam. This contains a 4.1 x 3.7 cm rim-enhancing fluid collection suggestive of a pulmonary abscess, possibly in the setting of necrotizing pneumonia. Additional suspected 1.5 cm right lower lobe pulmonary abscess. Left lower lobe airspace opacity which favors pneumonia. These findings are likely infectious. A neoplastic process is within the differential but considered less likely. Mediastinal and hilar lymphadenopathy which is probably related reactive but can be assessed on chest CT. A CT of the chest with IV contrast is recommended. Pulmonary consultation is suggested. Findings will be called/faxed to ordering provider at time of dictation. 2. Small right pleural effusion. 3. No bowel obstruction. No bowel wall thickening. 4. Mild left collecting system dilatation with several hypoenhancing foci within the left kidney. These findings could be chronic however pyelonephritis cannot be completely excluded and could be correlated with urinalysis. 5. 2 mm left renal calculus. No ureteral calculi. 6. Anasarca. Patient sent to the ER for evaluation Levaquin and Flagyl administered for lung abscess. 1 unit packed RBC transfused at the ER. Medical History as above Surgical History : Cataract surgery, hernia repair Family History : Heart disease, breast cancer, stroke Personal/Social history : Non-smoker, no EtOH intake, retired [employer] Allergies Allergy/AdvReac Type Severity Reaction Status Date / Time citalopram [From Celexa] Allergy Rash Verified 08/11/22 23:51 Penicillins Allergy Hives Verified 08/11/22 23:47 Home Medications Medication Instructions Recorded Confirmed Type levothyroxine 75 mcg tablet 75 mcg PO DAILY 02/09/22 08/11/22 History atorvastatin 40 mg tablet 40 mg PO QAM #30 tabs 02/10/22 08/11/22 Rx alendronate 70 mg tablet 70 mg PO WK 08/11/22 08/11/22 History aspirin 81 mg tablet,delayed 81 mg PO QAM 08/11/22 08/11/22 History release calcium carbonate 500 mg calcium 500 mg PO QAM 08/11/22 08/11/22 History (1,250 mg) tablet cholecalciferol (vitamin D3) 25 25 mcg PO QAM 08/11/22 08/11/22 History mcg (1,000 unit) tablet (Vitamin D3) furosemide 20 mg tablet 20 mg PO UD 08/11/22 08/11/22 History metoprolol succinate 25 mg 12.5 mg PO QAM 08/11/22 08/11/22 History tablet,extended release 24 hr Past Med/Surg History Medical History CVA (cerebral vascular accident) Hypothyroidism (acquired) Surgical History History of hernia surgery Family History Father Stroke Social History Smoking Status: Never smoker Hx Alcohol Use: No Hx Substance Use: No Preferred Language: Icelandic Communication Ability: Effective 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 marital status: Current Living Situation: Spouse How many Children do You have: 1 Feels Safe at Home: Yes Assistive Devices: None Review of Systems Review of Systems: As per HPI, all other systems reviewed and negative Physical Exam Physical Exam: GENERAL: Comfortable, no respiratory distress SKIN: Pallor, warm HEENT: Alopecia, pale palpebral conjunctivae, no ptosis, dry buccal mucosa NECK : Supple, no tenderness CHEST : Decreased breath sounds, no tenderness HEART : RRR, no obvious murmurs ABDOMEN: Some distention, nontender EXTREMITIES : Bilateral LE swelling, no LE tenderness, no other conspicuous deformities noted NEUROLOGIC : Coherent, no facial asymmetry, no other gross focality Results & Data Results & Data ([facility]) Vital Signs (Past 12 Hours) Vital Signs Temp Pulse Pulse Resp BP BP Pulse Ox 08/11/22 23:58 37.4 C 83 20 152/75 H 96 08/11/22 23:03 78 18 128/57 L 95 08/11/22 21:21 89 20 98 08/11/22 21:21 86 22 141/68 H 99 08/11/22 19:57 37.1 C 87 18 131/63 95 O2 Del Method 08/11/22 23:58 08/11/22 23:03 08/11/22 21:21 Room Air 08/11/22 21:21 Room Air 08/11/22 19:57 Room Air Laboratory Results Laboratory Results WBC 15.67 K/ul (4.8-10.8) H 08/11/22 20: RBC 2.71 M/uL (4.63-6.08) L 08/11/22 20: Hgb 7.1 g/dl (14.0-18.0) L 08/11/22 20: Hct 22.1 % (40.1-51.0) L 08/11/22 20: MCV 81.5 fL (80.0-100.0) 08/11/22 20: MCH 26.2 pg (25.0-34.0) 08/11/22 20: MCHC 32.1 g/dL (32.0-36.0) 08/11/22 20: RDW Std Deviation 46.5 fL (36.4-46.3) H 08/11/22 20: RDW Coeff of Lamar 15.8 % (11.5-14.5) H 08/11/22 20: Plt Count 587 K/uL (130-400) H 08/11/22 20:27 MPV 10.2 fL (9.4-12.4) 08/11/22 20: Immature Gran % (Auto) 0.9 % 08/11/22 20: Neut % (Auto) 82.9 % 08/11/22 20: Lymph % (Auto) 7.4 % 08/11/22 20: [place] % (Auto) 7.8 % 08/11/22 20: Eos % (Auto) 0.5 % 08/11/22 20: Baso % (Auto) 0.5 % 08/11/22 20: Neut # (Auto) 12.98 K/uL (1.4-6.5) H 08/11/22 20: Lymph # (Auto) 1.16 K/uL (1.2-3.4) L 08/11/22 20:27 [place] # (Auto) 1.23 K/uL (0.24-0.82) H 08/11/22 20: Eos # (Auto) 0.08 K/uL (0-0.50) 08/11/22 20: Baso # (Auto) 0.08 K/uL (0-0.2) 08/11/22: Immature Gran # (Auto) 0.14 K/uL (0.00-0.02) H 08/11/22 20: Toxic Vacuolation 1+ 08/11/22 20: Echinocytes 1+ 08/11/22 20: PT 11.4 Seconds (9.0-12.0) 08/11/22: INR 1.1 (0.9-1.1) 08/11/22: APTT 22.2 Seconds (21.0-31.0) 08/11/22: PTT Ratio 0.8 08/11/22: Sodium 129 mmol/L (136-145) L 08/11/22: Potassium 4.6 mmol/L (3.5-5.1) 08/11/22: Chloride 95 mmol/L (98-107) L 08/11/22: Carbon Dioxide 26 mmol/L (21-32) 08/11/22: Anion Gap 8 (3-11) 08/11/22 20: BUN 21 mg/dl (6-23) 08/11/22: Creatinine 0.81 mg/dl (0.6-1.4) 08/11/22: Est Cr Clr Drug Dosing 59.0 ml/min 08/11/22 20: Est GFR ( Amer) 99.4 ml/min 08/11/22 20: Est GFR (Non-Af Amer) 85.7 ml/min 08/11/22: BUN/Creatinine Ratio 25.9 (10-20) H 08/11/22 20: Glucose 101 mg/dl (70-99(Fasting)) H 08/11/22 20: Lactate 0.8 mmol/L (0.4-2.0) 08/11/22 22:40 Calcium 8.0 mg/dl (8.5-10.1) L 08/11/22 20: Magnesium 1.9 mg/dl (1.7-2.4) 08/11/22 20: Total Bilirubin 0.6 mg/dl (0.2-1.0) 08/11/22 20:27 AST 35 U/L (13-39) 08/11/22 20: ALT 27 U/L (7-52) 08/11/22 20: Alkaline Phosphatase 71 U/L (34-104) 08/11/22 20:27 Troponin I High Sens 13.5 pg/ml (0-20) 08/11/22 20: Total Protein 6.4 gm/dl (6.0-8.3) 08/11/22 20: Albumin 2.6 gm/dl (3.4-5.0) L 08/11/22 20: Globulin 3.8 gm/dl (2.5-4.0) 08/11/22 20: Albumin/Globulin Ratio 0.7 (0.9-2) L 08/11/22 20: Blood Type A Positive 08/11/22 22:40 Blood Type Recheck A Positive 08/11/22 22:40 Antibody Screen NEGATIVE 08/11/22 22:40 Crossmatch See Detail 08/11/22 22:[address] chest initial read: Fluid collection measures 3.6 cmin the right middle lobe with small adjacent satellite lesions. Findings suspicious for pulmonaryabscess. Extensive associated atelectasis or airspace disease noted in the adjacent lung Patchyleft lower lobe nodular infiltrate also noted. Findings suggest multifocal pneumonia aswell as pulmonaryabscess Small right pleural effusion. EKG as per my interpretation : Rate 90, NSR, normal axis, T wave abnormality septal leads (1) Abscess of lung Laterality: unspecified laterality Pulmonary abscess pneumonia presence: with pneumonia Qualified Code(s): J85.1 - Abscess of lung with pneumonia
[2022-08-12] MEDS ORDERED: MAGNESIUM SULFATE / D5W 1 GM/100 ML BAG IV ONE (00:03)
[2022-08-12] MEDS ORDERED: SODIUM CHLORIDE 0.9% 500 ML IV ONE (00:06)
--- NOTE | 2022-08-12 00:08 | Emergency Department Note ---
History of Present Illness General Chief complaint: Referred by Doctor Stated complaint: REFERRED BY DR ANEMIA, PNEUMONIA Time Seen by Provider: 08/11/22 21:19 History of Present Illness Provider complaint: Cough abnormal CT of the abdomen Onset (ago): week(s) 2 Associated symptoms: + cough; no chest pain, no fever/chills, no headaches, no nausea/vomiting or no shortness of breath 77-year-old male presents emergency department for cough. Patient reports he has been having cough for the last 2 weeks. Patient reports he been having in creasing swelling of the bilateral lower extremities. No reported fevers. No chest pain or difficulty breathing. Patient states his PCP told him to come here after he had a CT scan of the abdomen done earlier today outpatient. Home Medications Medication Instructions Recorded Confirmed Type levothyroxine 75 mcg tablet 75 mcg PO DAILY 02/09/22 08/11/22 History atorvastatin 40 mg tablet 40 mg PO QAM #30 tabs 02/10/22 08/11/22 Rx alendronate 70 mg tablet 70 mg PO WK 08/11/22 08/11/22 History aspirin 81 mg tablet,delayed 81 mg PO QAM 08/11/22 08/11/22 History release calcium carbonate 500 mg calcium 500 mg PO QAM 08/11/22 08/11/22 History (1,250 mg) tablet cholecalciferol (vitamin D3) 25 25 mcg PO QAM 08/11/22 08/11/22 History mcg (1,000 unit) tablet (Vitamin D3) furosemide 20 mg tablet 20 mg PO UD 08/11/22 08/11/22 History metoprolol succinate 25 mg 12.5 mg PO QAM 08/11/22 08/11/22 History tablet,extended release 24 hr Allergies Allergy/AdvReac Type Severity Reaction Status Date / Time citalopram [From Celexa] Allergy Rash Verified 08/11/22 23:51 Penicillins Allergy Hives Verified 08/11/22 23:47 Past Med/Surg History Medical History CVA (cerebral vascular accident) Hypothyroidism (acquired) Surgical History History of hernia surgery Family History Father Stroke Social History Smoking Status: Never smoker Hx Alcohol Use: No Hx Substance Use: No Preferred Language: Indonesian Communication Ability: Effective Pool Lifeguard Required: No marital status: Current Living Situation: Spouse How many Children do You have: 1 Feels Safe at Home: Yes Assistive Devices: None Review of Systems A total of 10 systems reviewed and were otherwise negative Physical Exam Vital Signs Vital Signs - 24 hr 08/11/22 19:57 08/11/22 21:15 08/11/22 21:21 Temperature 37.1 C Temperature Source Temporal Artery Scan Pulse Rate 87 Pulse Rate [Apical] 86 Pulse Rhythm Pulse Rhythm [Apical] Regular Pulse Strength [Apical] Normal Respiratory Rate 18 22 Respiratory Effort / Characteristics Non-Labored Spontaneous Non-Labored Respiratory Depth Normal Respiratory Pattern Regular Blood Pressure 131/63 Blood Pressure [Right Arm] 141/68 H Blood Pressure Mean 85 Blood Pressure Mean [Right Arm] 92 Blood Pressure Position Sitting Pulse Oximetry 95 99 Oxygen Delivery Method Room Air Room Air Sepsis Recent Fever Within 48 Hours No Sepsis New/Unexplained Change in Mental Status N/A Sepsis Action Taken by Nursing No Action Required 08/11/22 21:21 08/11/22 23:03 08/11/22 23:58 Temperature 37.4 C Temperature Source Oral Pulse Rate 89 78 83 Pulse Rate [Apical] Pulse Rhythm Regular Pulse Rhythm [Apical] Pulse Strength [Apical] Respiratory Rate 20 18 20 Respiratory Effort / Characteristics Respiratory Depth Respiratory Pattern Blood Pressure 128/57 L 152/75 H Blood Pressure [Right Arm] Blood Pressure Mean 80 100 Blood Pressure Mean [Right Arm] Blood Pressure Position Pulse Oximetry 98 95 96 Oxygen Delivery Method Room Air Sepsis Recent Fever Within 48 Hours Sepsis New/Unexplained Change in Mental Status Sepsis Action Taken by Nursing Physical Exam GENERAL: He is oriented to person, place, and time. He appears well-developed and well-nourished. He does not appear distressed. HENT: Exam performed. - Head: Normocephalic and atraumatic. - Right Ear: External ear normal. No mastoid tenderness. - Left Ear: External ear normal. No mastoid tenderness. - Mouth/Throat: The oropharynx is clear and moist. No trismus in the jaw. No dental abscesses or uvula swelling. No oropharyngeal exudate or tonsillar abs cesses. EYES: Conjunctivae and EOM are normal. Pupils are equal, round, and reactive to light. Right eye exhibits no discharge. Left eye exhibits no discharge. No scleral icterus. NECK: Normal range of motion. Neck supple. No JVD present. No spinous process tenderness present. No carotid bruit present. No rigidity. No tracheal deviation and normal range of motion present. No Brudzinski's sign and no Kernig's sign noted. CV: Normal rate, regular rhythm, normal heart sounds and intact distal pulses. Palpable radial pulses bue. PULM/CHEST: Effort normal and breath sounds normal. No respiratory distress. No stridor. He has no wheezes. He has no rales. - Chest Wall: He exhibits no tenderness. ABD: The abdomen is soft. Bowel sounds are normal. He has no distension. No mass is present. There is no tenderness. There is no rebound, no guarding, no Goldman's sign and no tenderness at McBurney's point. Rovsig negative. Rectal: Hemoccult negative MUSC/SKEL: Normal range of motion. There is no tenderness or deformity. 2+ pitting edema of the bilateral lower extremities. LYMPH: No cervical adenopathy. NEURO: He is alert and oriented to person, place, and time. He has normal strength. No cranial nerve deficit or sensory deficit. Coordination and gait normal. GCS eye subscore is 4. GCS verbal subscore is 5. GCS motor subscore is 6. Cerebellar tests wnl. SKIN: Pale PSYCH: He has a normal mood and affect. Behavior is normal. Judgment and thought content normal. Course Course 2118: The patient was evaluated in room C2. A complete history and physical exam was performed Cardiac monitoring: An order was placed for continuous cardiac monitoring. The monitor shows a rate of 80 with sinus rhythm EMR reviewed patient had a CT of the abdomen pelvis done earlier today outpatient at 3 PM which showed a dense consolidation within the right middle lobe 4.1 x 3.7 cm rim-enhancing lesion suggestive of pulmonary abscess possibly necrotizing pneumonia there is also a 1.5 cm right lower lobe pulmonary abscess and a left lower lobe opacity which favors pneumonia. Neoplastic process is considered less likely. A CT scan of the chest was recommended. Labs and CT scan of chest will be performed. Given these findings patient will be empirically started with antibiotics. Patient reports he has an allergy to peni cillins. Flagyl and Levaquin ordered IV piggyback for the patient. 2325: Vital signs stable. Labs show hemoglobin of 7.1. Patient be transfused 1 unit packed red blood cells. CT scan of the chest 0.6 cm fluid collection in the right middle lobe suspicious for a pulmonary abscess. There is a multifocal pneumonia as well as pulmonary abscess in the left lower lobe also. Labs also show leukocytosis of 0.6. Sodium 129. Lactic acid 0.8. Discussed the case with pulmonology Dr. Babin. He states to continue the IV antibiotics and he will evaluate the patient in the morning no need for transfer at this time. Discussed case with Dr. Junior who will evaluate the patient for admission. Administered Medications Discontinued Medications Metronidazole (Flagyl) 500 mg in 100 mls @ 100 mls/hr IV NOW STA Stop: 08/11/22 22:28 Last Admin: 08/11/22 23:06 Dose: 100 mls/hr Documented By: JAMES Ioversol (Optiray 300 100ml) 93 ml IV ONCE ONE Stop: 08/11/22 22:25 Last Admin: 08/11/22 22:25 Dose: 93 ml Documented By: BRYANT Critical Care Time Critical Care Time: Yes Total Critical Care Time: 79 I have personally spent greater than 79 minutes of critical care time in the direct management of this patient. This includes bedside care, interpretation of diagnostic studies, and testing, discussion with consultants, patient, and family members, and other required patient management activities. This 79 minutes is in excess of all separately billable procedures. Medical Decision Making Laboratory Data Result diagrams: 08/11/22 20:27 08/11/22 20:27 Lab Results 08/11/22 08/11/22 08/11/22 Range/Units 20:27 20:27 20:27 WBC 15.67 H (4.8-10.8) K/ul RBC 2.71 L (4.63-6.08) M/uL Hgb 7.1 L (14.0-18.0) g/dl Hct 22.1 L (40.1-51.0) % MCV 81.5 (80.0-100.0) fL MCH 26.2 (25.0-34.0) pg MCHC 32.1 (32.0-36.0) g/dL RDW Std Deviation 46.5 H (36.4-46.3) fL RDW Coeff of Lamar 15.8 H (11.5-14.5) % Plt Count 587 H (130-400) K/uL MPV 10.2 (9.4-12.4) fL Immature Gran % (Auto) 0.9 % Neut % (Auto) 82.9 % Lymph % (Auto) 7.4 % [place] % (Auto) 7.8 % Eos % (Auto) 0.5 % Baso % (Auto) 0.5 % Neut # (Auto) 12.98 H (1.4-6.5) K/uL Lymph # (Auto) 1.16 L (1.2-3.4) K/uL [place] # (Auto) 1.23 H (0.24-0.82) K/uL Eos # (Auto) 0.08 (0-0.50) K/uL Baso # (Auto) 0.08 (0-0.2) K/uL Immature Gran # (Auto) 0.14 H (0.00-0.02) K/uL Toxic Vacuolation 1+ Echinocytes 1+ PT 11.4 (9.0-12.0) Seconds INR 1.1 (0.9-1.1) APTT 22.2 (21.0-31.0) Seconds PTT Ratio 0.8 Sodium 129 L (136-145) mmol/L Potassium 4.6 (3.5-5.1) mmol/L Chloride 95 L (98-107) mmol/L Carbon Dioxide 26 (21-32) mmol/L Anion Gap 8 (3-11) BUN 21 (6-23) mg/dl Creatinine 0.81 (0.6-1.4) mg/dl Est Cr Clr Drug Dosing 59.0 ml/min Est GFR ( Amer) 99.4 ml/min Est GFR (Non-Af Amer) 85.7 ml/min BUN/Creatinine Ratio 25.9 H (10-20) Glucose 101 H (70-99(Fasting)) mg/dl Lactate (0.4-2.0) mmol/L Calcium 8.0 L (8.5-10.1) mg/dl Magnesium 1.9 (1.7-2.4) mg/dl Total Bilirubin 0.6 (0.2-1.0) mg/dl AST 35 (13-39) U/L ALT 27 (7-52) U/L Alkaline Phosphatase 71 (34-104) U/L Troponin I High Sens 13.5 (0-20) pg/ml Total Protein 6.4 (6.0-8.3) gm/dl Albumin 2.6 L (3.4-5.0) gm/dl Globulin 3.8 (2.5-4.0) gm/dl Albumin/Globulin Ratio 0.7 L (0.9-2) Blood Type Blood Type Recheck Antibody Screen Crossmatch 08/11/22 08/11/22 08/11/22 Range/Units 22:40 22:40 22:40 WBC (4.8-10.8) K/ul RBC (4.63-6.08) M/uL Hgb (14.0-18.0) g/dl Hct (40.1-51.0) % MCV (80.0-100.0) fL MCH (25.0-34.0) pg MCHC (32.0-36.0) g/dL RDW Std Deviation (36.4-46.3) fL RDW Coeff of Lamar (11.5-14.5) % Plt Count (130-400) K/uL MPV (9.4-12.4) fL Immature Gran % (Auto) % Neut % (Auto) % Lymph % (Auto) % [place] % (Auto) % Eos % (Auto) % Baso % (Auto) % Neut # (Auto) (1.4-6.5) K/uL Lymph # (Auto) (1.2-3.4) K/uL [place] # (Auto) (0.24-0.82) K/uL Eos # (Auto) (0-0.50) K/uL Baso # (Auto) (0-0.2) K/uL Immature Gran # (Auto) (0.00-0.02) K/uL Toxic Vacuolation Echinocytes PT (9.0-12.0) Seconds INR (0.9-1.1) APTT (21.0-31.0) Seconds PTT Ratio Sodium (136-145) mmol/L Potassium (3.5-5.1) mmol/L Chloride (98-107) mmol/L Carbon Dioxide (21-32) mmol/L Anion Gap (3-11) BUN (6-23) mg/dl Creatinine (0.6-1.4) mg/dl Est Cr Clr Drug Dosing ml/min Est GFR ( Amer) ml/min Est GFR (Non-Af Amer) ml/min BUN/Creatinine Ratio (10-20) Glucose (70-99(Fasting)) mg/dl Lactate 0.8 (0.4-2.0) mmol/L Calcium (8.5-10.1) mg/dl Magnesium (1.7-2.4) mg/dl Total Bilirubin (0.2-1.0) mg/dl AST (13-39) U/L ALT (7-52) U/L Alkaline Phosphatase (34-104) U/L Troponin I High Sens (0-20) pg/ml Total Protein (6.0-8.3) gm/dl Albumin (3.4-5.0) gm/dl Globulin (2.5-4.0) gm/dl Albumin/Globulin Ratio (0.9-2) Blood Type A Positive Blood Type Recheck A Positive Antibody Screen NEGATIVE Crossmatch See Detail Imaging Data Radiologist's Impression: PreliminaryFindingsOnly See Final Report For Complete Findings CT CHEST With Contrast: Fluid collection measures 3.6 cmin the right middle lobe with small adjacent satellite lesions. Findings suspicious for pulmonaryabscess. Extensive associated atelectasis or airspace disease noted in the adjacent lung Patchyleft lower lobe nodular infiltrate also noted. Findings suggest multifocal pneumonia aswell as pulmonaryabscess Small right pleural effusion Radiologist: Sergey Artis MD Study ready at 23:10 and initial results transmitted at 23:17 ECG Data Indication: + SOB/dyspnea Rate (beats per minute): 88 Rhythm: + normal sinus ECG Intervals/blocks: + Normal QRS, + Normal VT and + Normal QT-c ECG ST segments: + Normal ST segments [facility] Narrative 2842: The patient was evaluated in room C2. A complete history and physical exam was performed Cardiac monitoring: An order was placed for continuous cardiac monitoring. The monitor shows a rate of 80 with sinus rhythm EMR reviewed patient had a CT of the abdomen pelvis done earlier today outpatien t at 3 PM which showed a dense consolidation within the right middle lobe 4.1 x 3.7 cm rim-enhancing lesion suggestive of pulmonary abscess possibly necrotizing pneumonia there is also a 1.5 cm right lower lobe pulmonary abscess and a left lower lobe opacity which favors pneumonia. Neoplastic process is considered less likely. A CT scan of the chest was recommended. Labs and CT scan of chest will be performed. Given these findings patient will be empirically started with antibiotics. Patient reports he has an allergy to penicillins. Flagyl and Levaquin ordered IV piggyback for the patient. 2325: Vital signs stable. Labs show hemoglobin of 7.1. Patient be transfused 1 unit packed red blood cells. CT scan of the chest 0.6 cm fluid collection in the right middle lobe suspicious for a pulmonary abscess. There is a multifocal pneumonia as well as pulmonary abscess in the left lower lobe also. Labs also show leukocytosis of 0.6. Sodium 129. Lactic acid 0.8. Discussed the case with pulmonology Dr. Babin. He states to continue the IV antibiotics and he will evaluate the patient in the morning no need for transfer at this time. Discussed case with Dr. Junior who will evaluate the patient for admission. Impression & Plan Abscess of lung, Anemia Discharge Plan Visit Data Chief Complaint: Referred by Doctor Stated Complaint: REFERRED BY , ANEMIA, PNEUMONIA ED Provider: Salvatore Hardy Discharge Problem: Abscess of lung, Anemia Patient Disposition: Admitted As Inpatient Forms Stand Alone Forms: My [facility] Prescriptions Prescriptions: No Action levothyroxine 75 mcg tablet 75 mcg PO DAILY atorvastatin 40 mg Tablet 40 mg PO QAM Qty: 30 1RF furosemide 20 mg tablet 20 mg PO UD Rx Instructions: take 2 tablets in the morning. start 08/11/22 x3 days then 1 tab daily alendronate 70 mg tablet 70 mg PO WK Rx Instructions: tuesdays metoprolol succinate 25 mg tablet extended release 24 hr 12.5 mg PO QAM calcium carbonate [Calcium 500] 500 mg calcium (1,250 mg) Tablet 500 mg PO QAM cholecalciferol (vitamin D3) [Vitamin D3] 25 mcg (1,000 unit) Tablet 25 mcg PO QAM aspirin 81 mg tablet,delayed release (DR/EC) 81 mg PO QAM Referrals Referrals: Ismael Vasquez PA-C [Primary Care Provider] -
[2022-08-12] MEDS ORDERED: FUROSEMIDE INJ 20 MG/2 ML VIAL IV STA (01:27)
[2022-08-12] MEDS ORDERED: ACETAMINOPHEN 325 MG TAB PO PRN (01:50)
[2022-08-12 02:53] LABS: Appearance Urine Clear (Clear); Bacteria Urine Automated Negative (Negative); Bilirubin Urine Negative (Negative); Blood Urine 1+ (Negative); Cast Urine Automated 0 /lpf (0-5); Color Urine Yellow; Glucose Urine UA Negative (Negative); Ketones Urine Negative (Negative); Leukocyte Esterase Urine Negative (Negative); Nitrite Urine Negative (Negative); Protein Urine Negative (Negative); Urobilinogen Urine Negative (Negative); WBC Urine Automated 0 /hpf (0-5); pH Urine 7.5 (4.5-7.5)
[2022-08-12] MEDS: LEVOTHYROXINE SODIUM 75 MCG TABLET PO SCH (04:42)
[2022-08-12 08:11] LABS: Reticulocyte % 1.9 % (0.5-2.0); Reticulocytes # 0.06 10^6/uL (0.02-0.10)
[2022-08-12 08:12] LABS: Hematocrit (blood only) 25.1 % (40.1-51.0); Hemoglobin 8.4 g/dl (14.0-18.0); Mean Corpuscular Hemoglobin 26.8 pg (25.0-34.0); Mean Corpuscular Hgb Conc 33.5 g/dL (32.0-36.0); Mean Corpuscular Volume 79.9 fL (80.0-100.0); Platelet Count 587 K/uL (130-400); RDW Coefficient of Variation 15.5 % (11.5-14.5); RDW Standard Deviation 44.9 fL (36.4-46.3); Red Blood Count 3.14 M/uL (4.63-6.08); White Blood Count 18.28 K/ul (4.8-10.8)
--- NOTE | 2022-08-12 08:26 | Pulmonary Consultation ---
Date of Consultation August 12, 2022 Assessment & Plan (1) Abscess of lung: Patient has a large right middle lobe consolidation with a necrotic focus as well as a small left lower lobe consolidation with a necrotic focus. These may be areas of pulmonary abscess. Malignancy is difficult to exclude. Recommend 4 weeks of antibiotics with a repeat CT chest. If there is no change in the consolidation, will perform a bronchoscopy at that time. Would like to also rule out tuberculosis. We will obtain a QuantiFERON gold and AFB sputum cultures. We will place the patient in airborne isolation. Continue Levaquin and Flagyl at this time. Patient has a history of allergies to penicillin. Follow-up blood cultures and transthoracic echocardiogram to rule out endocarditis. Laterality: unspecified laterality Pulmonary abscess pneumonia presence: with pneumonia Qualified Code(s): J85.1 - Abscess of lung with pneumonia (2) Low BMI: Patient does endorse a decreased appetite. This could be related to his history of CVA, chronic infection and possibly malignancy. Recommend nutrition consult. History of Present Illness Reason for Consultation: Possible pulmonary abscess Attending Physician: Saleem Barclay MD History of Present Illness 77-year-old male with a past medical history of CVA identified this past January, chronic anemia and hypothyroidism who is presenting to the hospital due to the request of his PCP. His PCP identified inguinal adenopathy and obtain a CT of his abdomen/pelvis. CT abdomen and pelvis revealed dense consolidation of the right middle lobe measuring 4.[address] chest was obtained. CT chest revealed a large consolidation in the right middle lobe with an area of central liquefactive necrosis. Small right pleural effusion is seen as well. There also appears to be a fluid-filled consolidative process in the left lower lobe. Patient is currently afebrile. He is on levofloxacin and Flagyl. He has a leukocytosis of 18,000. He also has a thrombocytosis of 587,000. Blood cultures and echo are pending. He denies any cough or shortness of breath. He is a lifelong non-smoker. He still working and works as a janitorial staff. He does endorse a decreased appetite. He is uncertain of weight loss. He denies any fevers or chills. Allergies Allergy/AdvReac Type Severity Reaction Status Date / Time citalopram [From Celexa] Allergy Rash Verified 08/11/22 23:51 Penicillins Allergy Hives Verified 08/11/22 23:47 Home Medications Medication Instructions Recorded Confirmed Type levothyroxine 75 mcg tablet 75 mcg PO DAILY 02/09/22 08/11/22 History atorvastatin 40 mg tablet 40 mg PO QAM #30 tabs 02/10/22 08/11/22 Rx alendronate 70 mg tablet 70 mg PO WK 08/11/22 08/11/22 History aspirin 81 mg tablet,delayed 81 mg PO QAM 08/11/22 08/11/22 History release calcium carbonate 500 mg calcium 500 mg PO QAM 08/11/22 08/11/22 History (1,250 mg) tablet cholecalciferol (vitamin D3) 25 25 mcg PO QAM 08/11/22 08/11/22 History mcg (1,000 unit) tablet (Vitamin D3) furosemide 20 mg tablet 20 mg PO UD 08/11/22 08/11/22 History metoprolol succinate 25 mg 12.5 mg PO QAM 08/11/22 08/11/22 History tablet,extended release 24 hr Patient History Medical History (Updated 08/12/22 @ 09:01 by Prosper Babin MD) CVA (cerebral vascular accident) Hypothyroidism (acquired) Low BMI Surgical History History of hernia surgery Family History Father Stroke Social History Smoking Status: Never smoker Second Hand Exposure: No; Do You Dip or Chew Tobacco: No; Tobacco Cessation Education Requested by Patient: No Hx Alcohol Use: No Hx Substance Use: No Preferred Language: Bahamian Communication Ability: Effective Communication Ability Comment: 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 Eyes: Pupils are equal round and reactive to light. Conjunctivae are normal. Anicteric sclera. Ears nose, mouth and throat: Dentition appears good. Mallampati 2. Neck: Trachea is midline. Visual inspection is normal. Respiratory: Clear to auscultation bilaterally. No use of accessory muscles. No significant clubbing noted. Cardiovascular: Regular rate and rhythm. No murmurs. No edema. Gastrointestinal: Normal bowel sounds, soft, nontender and nondistended. No hepatosplenomegaly noted. Musculoskeletal: No cyanosis. Patient is able to move all extremities. Skin: No rashes, warm dry and intact. Neurologic: No obvious focal neurological deficits seen. Psychiatric: Alert and oriented x3 with a euthymic affect. Results & Data Results & Data ([facility]) Vital Signs (Past 12 Hours) Vital Signs Temp Pulse Pulse Resp BP BP Pulse Ox 08/12/22 06:35 67 18 135/60 95 08/12/22 05:47 67 08/12/22 05:47 08/12/22 05:47 08/12/22 05:47 08/12/22 03:52 36.7 C 68 18 151/63 H 97 08/12/22 02:59 37.2 C 73 20 107/76 94 08/12/22 01:59 37.2 C 60 18 155/67 H 95 08/12/22 00:29 37.2 C 72 16 113/54 L 96 08/11/22 23:30 71 20 103/51 L 93 08/12/22 00:59 37.2 C 69 20 112/53 L 96 08/12/22 00:14 37.2 C 71 18 125/57 L 96 08/11/22 23:58 37.4 C 83 20 152/75 H 96 08/11/22 23:03 78 18 128/57 L 95 08/11/22 21:21 89 20 98 08/11/22 21:21 86 22 141/68 H 99 O2 Del Method 08/12/22 06:35 Room Air 08/12/22 05:47 08/12/22 05:47 Room Air 08/12/22 05:47 Room Air 08/12/22 05:47 Room Air 08/12/22 03:52 Room Air 08/12/22 02:59 08/12/22 01:59 08/12/22 00:29 08/11/22 23:30 08/12/22 00:59 08/12/22 00:14 08/11/22 23:58 08/11/22 23:03 08/11/22 21:21 Room Air 08/11/22 21:21 Room Air PG Care Time/CCT Total # of Minutes Spent Total Time Spent with Patient: Total time spent is greater than 50% in coordination of care (as documented) at patient's floor/unit and/or counseling patient: Coding Level of Care Code 44037 Initial Inpt Care Lvl 3 Diagnoses Abscess of lung J85.1 Laterality: unspecified laterality Pulmonary abscess pneumonia presence: with pneumonia Low BMI
[2022-08-12 08:36] LABS: Basophils # (auto) 0.06 K/uL (0-0.2); Basophils % (auto) 0.3 %; Immature Granulocytes # (auto) 0.19 K/uL (0.00-0.02); Lymphocytes # (auto) 0.51 K/uL (1.2-3.4); Lymphocytes % (auto) 2.8 %; Monocytes # (auto) 0.69 K/uL (0.24-0.82); Monocytes % (auto) 3.8 %; Neutrophils # (auto) 16.83 K/uL (1.4-6.5); Neutrophils % (auto) 92.1 %
--- NOTE | 2022-08-12 08:47 | CT Scan Report ---
CHEST CT WITH CONTRAST CT DOSE: 210.81 mGy.cm HISTORY: Abnormal abdomen and pelvis CT. Possible pulmonary abscess. TECHNIQUE: Multiaxial CT images of the chest were performed following the intravenous administration of contrast. A dose lowering technique was utilized adhering to the principles of ALARA. COMPARISON: Abdomen and pelvis CT 08/11/2022. FINDINGS: There are few old, healed bilateral rib fractures. Scattered Schmorl's nodes within the tho racic spine are noted. No acute fractures identified within the chest. No pneumothorax. Mild biapical pleural-parenchymal scarlike densities are noted. Partial opacification of the right middle lobe and left lower lobe bronchi. A few scattered punctate calcified granulomas within the lungs. Mild emphys nohemy. Small patchy airspace consolidation within the bilateral lower lobes most pronounced on the left . There is redemonstration of the small rim-enhancing hypodense focus within the base of the left low er lobe measuring approximately 1.4 cm. This favors a small abscess. This remains unchanged. Complete opacification of the right middle lobe which contains a multiloculated central hypodensity with mild peripheral enhancement and a punctate focus of gas. This hypodensity measures up to 5 cm and favors an abscess. A pulmonary mass could also have a similar appearance. There is a 1.4 cm peripheral enhan cing hypodense focus within the base of the right lower lobe consolidation also likely representing a small abscess. Mild body wall edema. Small right pleural effusion, unchanged. No evidence for an aor tic dissection. The heart is mildly enlarged. Limited views of the upper abdomen demonstrate mild thi ckening and fat stranding in the proximal stomach. The visualized liver, spleen, and adrenal glands a re unremarkable. The main pulmonary arteries are patent. There is mild mediastinal and right hilar ly mphadenopathy. Normal caliber esophagus. IMPRESSION: 1. Redemonstration of the dense consolidation throughout the right middle lobe which demonstrates a 5 cm multiloculated peripheral enhancing hypodensity containing a punctate focus of gas. Therefore, th is is highly suspicious for pulmonary abscess. An underlying mass is considered less likely but not e ntirely excluded. Recommend 3-[address] follow-up to ensure complete resolution. 2. Additional smaller areas consolidation within the bilateral lower lobes containing 1.4 cm peripher ally enhancing hypodense foci consistent with additional small abscesses. 3. Partial opacification of the right middle lobe and left lower lobe bronchi. Therefore, this could be due to aspiration. 4. Small right pleural effusion, unchanged. 5. Mild mediastinal and right hilar lymphadenopathy. This is likely reactive. Continued follow-up rec ommended to ensure resolution. 6. Mild thickening and adjacent fat stranding at the proximal stomach. This may represent a nonspecif ic gastritis. ACT 112: Negative or not required by law. Electronically signed by: Myles Gonsalez M.D. 08/12/2022 8:45 AM
[2022-08-12 08:50] LABS: Thyroid Stimulating Hormone 7.871 uIu/ml (0.300-4.500)
[2022-08-12] MEDS: ATORVASTATIN 40 MG TAB PO SCH (08:52)
[2022-08-12] MEDS: METOPROLOL SUCC 25MG EXT REL TAB PO SCH (08:52)
[2022-08-12] MEDS: ASPIRIN 81 MG ECTAB PO SCH (08:52)
[2022-08-12] MEDS: ENOXAPARIN INJ 30 MG/0.3 ML SYR SQ SCH (08:54)
[2022-08-12 08:56] LABS: Ferritin 838.8 ng/ml (8-388)
[2022-08-12] MEDS: metroNIDAZOLE 500 MG/100 ML BAG IV SCH ×3 (08:57→23:31)
[2022-08-12 09:16] LABS: BUN Creatinine Ratio 19.3 (10-20); Calcium 7.9 mg/dl (8.5-10.1); Creatinine Clr Calc Pharmacy 53.9 ml/min; Est GFR (Non-African American) 82.9 ml/min; Potassium 4.3 mmol/L (3.5-5.1)
[2022-08-12 09:25] LABS: T4 Free Thyroxine 1.11 ng/dl (0.61-1.60)
[2022-08-12] MEDS: PROMETHAZINE HCL 6.25 MG in SODIUM CHLORIDE 0.9% 50 ML IV PRN (10:56)
--- NOTE | 2022-08-12 12:12 | Electrocardiogram Report ---
Test Reason : Blood Pressure : / mmHG Vent. Rate : 088 BPM Atrial Rate : 088 BPM P-R Int : 134 ms QRS Dur : 086 ms QT Int : 364 ms P-R-T Axes : 010 077 069 degrees QTc Int : 440 ms Normal sinus rhythm Normal ECG When compared with ECG of 06-FEB-2022 14:33, No significant change was found Confirmed by Stephen Sheriff ([id number]) on 08/12/2022 12:12:41 PM Referred By: REFERRED SELF Confirmed By:Stephen Sheriff
[2022-08-12] MEDS ORDERED: BENZONATATE 100 MG CAPSULE PO PRN (20:21)
[2022-08-12] MEDS ORDERED: COUGH DROP (SUGAR FREE) LOZ 24 LOZ/1 BOX BUCCAL PRN (20:21)
[2022-08-13] MEDS: PROMETHAZINE HCL 6.25 MG in SODIUM CHLORIDE 0.9% 50 ML IV PRN (00:21)
[2022-08-13] MEDS: levoFLOXacin 500 MG TAB PO SCH ×2 (00:42→20:06)
[2022-08-13] MEDS: LEVOTHYROXINE SODIUM 75 MCG TABLET PO SCH (05:50)
[2022-08-13] MEDS: METOPROLOL SUCC 25MG EXT REL TAB PO SCH (08:58)
[2022-08-13] MEDS: ASPIRIN 81 MG ECTAB PO SCH (08:58)
[2022-08-13] MEDS: metroNIDAZOLE 500 MG/100 ML BAG IV SCH ×3 (08:59→23:09)
[2022-08-13] MEDS: ATORVASTATIN 40 MG TAB PO SCH (08:59)
[2022-08-13] MEDS: POLYETHYLENE (MIRALAX) 17 GM PACK PO SCH (09:00)
[2022-08-13] MEDS: ENOXAPARIN INJ 30 MG/0.3 ML SYR SQ SCH (09:01)
[2022-08-13] MEDS ORDERED: SODIUM CHLOR 7% 4 ML NEB NEB ONE (10:00)
--- NOTE | 2022-08-13 10:15 | Pulmonology Progress Note ---
Date of Service August 13, 2022 Assessment & Plan (1) Abscess of lung: Plan: Patient has a large right middle lobe consolidation with a necrotic focus as well as a small left lower lobe consolidation with a necrotic focus. These may be areas of pulmonary abscess. Malignancy is difficult to exclude. Recommend 4 weeks of antibiotics with a repeat CT chest. If there is no change in the consolidation, will perform a bronchoscopy at that time. Would like to also rule out tuberculosis. We will obtain a QuantiFERON gold and AFB sputum cultures. Continue airborne isolation. Continue Levaquin and Flagyl at this time. Patient has a history of allergies to penicillin. Laterality: unspecified laterality Pulmonary abscess pneumonia presence: with pneumonia Qualified Code(s): J85.1 - Abscess of lung with pneumonia (2) Low BMI: Plan: Patient does endorse a decreased appetite. This could be related to his history of CVA, chronic infection and possibly malignancy. Recommend nutrition consult. Plan Pulmonary to sign off at this time. Please call with questions. We will see him in the outpatient clinic in about 4 weeks. Admission and Anticipated Discharge Date Admission Date: August 12, 2022 Subjective Patient seen and examined. He is doing well. Less nausea today. Breathing well on room air. Review of Systems Review of Systems: All systems reviewed & are unremarkable except as noted in HPI & below Physical Exam Physical Exam: Constitutional: Elderly appearing male no apparent distress. Eyes: Pupils are equal round and reactive to light. Conjunctivae are normal. Anicteric sclera. Ears nose, mouth and throat: Dentition appears good. Mallampati 2. Neck: Trachea is midline. Visual inspection is normal. Respiratory: Clear to auscultation bilaterally. No use of accessory muscles. No significant clubbing noted. Cardiovascular: Regular rate and rhythm. No murmurs. No edema. Gastrointestinal: Normal bowel sounds, soft, nontender and nondistended. No hepatosplenomegaly noted. Musculoskeletal: No cyanosis. Patient is able to move all extremities. Skin: No rashes, warm dry and intact. Neurologic: No obvious focal neurological deficits seen. Psychiatric: Alert and oriented x3 with a euthymic affect. Results & Data Results & Data ([facility]) Vital Signs (Past 12 Hours) Vital Signs Temp Pulse Pulse Resp BP Pulse Ox O2 Del Method 08/13/22 08:00 56 L 08/13/22 06:21 36.6 C 62 18 162/68 H 94 Room Air 08/13/22 02:48 36.5 C 61 18 135/70 95 Room Air 08/12/22 22:15 61 08/12/22 23:26 36.6 C 64 17 144/62 H 94 Room Air PG Care Time/CCT Total # of Minutes Spent Total Time Spent with Patient: Total time spent is greater than 50% in coordination of care (as documented) at patient's floor/unit and/or counseling patient: Coding Level of Care Code 89958 Subseq Hosp Care Lvl 2 Diagnoses Abscess of lung J85.1 Laterality: unspecified laterality Pulmonary abscess pneumonia presence: with pneumonia Low BMI
--- NOTE | 2022-08-13 17:25 | Hospitalist Progress Note ---
Date of Service August 13, 2022 Assessment & Plan (1) Abscess of lung: Plan: No overt sepsis currently. 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 Dilutional FOBT done at the ER negative Hemoglobin stable at 8.4 hx CVA/PVD HTN, BP on the lower side hyperlipidemia on statin Rx hx PSVT hypothyroidism, recent outpatient TSH slight elevated mood disorder, at baseline prediabetes, hemoglobin A1c of 5.03 February 2020 Medical telemetry given hyponatremia CS, Levaquin, Flagyl for pulmonary abscess, presumptive community-acquired infection Pulmonary consult RE lung abscess (ER provider already in touch with Dr. Babin). N.p.o. until patient seen by jewelry drilling machine operator in a.m. in anticipation of procedure. Hyponatremia work-up Lasix Update TTE Nephrology consult if without improvement Anemia work-up Transfuse PRBC to maintain hemoglobin above 8 given history CVA DVT prophylaxis with Lovenox subcu DNR Patient request for daughter to updated of progress. Ms. Soco Hughes, contact #[phone]. Admission and Anticipated Discharge Date Admission Date: August 12, 2022 Subjective 08/13/2022 The patient was seen and examined in medical telemetry unit and in the isolation room He has been feeling much better and seems to be back to his baseline Review of Systems Review of Systems: All systems reviewed and are unremarkable except as noted below Respiratory: No shortness of breath at rest and the cough is diminished Physical Exam Physical Exam: Lying in bed comfortably without any apparent distress Constitutional: + ill appearing and average body habitus Eyes: PERRL, conjunctivae normal, anicteric sclerae ENMT: external ear and nose normal, oropharynx normal Neck: trachea midline, no thyromegaly Respiratory: no respiratory distress Auscultation: + diminished lung sounds and + crackles (Bilaterally) Cardiovascular: Rate/Rhythm: regular rate and regular rhythm; not tachycardic Heart Sounds: normal S1 and normal S2; no murmur Extremities: + edema (Tra ce edema bilateral) Gastrointestinal (Abdomen): Inspection/Auscultation: normal bowel sounds; abdomen not distended Percussion/Palpation: abdomen soft; abdomen nontender Musculoskeletal: No acute arthritis in any joint Neurologic: Alert, awake and oriented x3. No focal sensory or no motor deficit appreciated Psychiatric: A+Ox3, euthymic affect Lymphatic: no cervical or axillary lymphadenopathy Results & Data Results & Data ([facility]) Vital Signs (Past 12 Hours) Vital Signs Temp Pulse Pulse Resp BP Pulse Ox O2 Del Method 08/13/22 16:09 65 08/13/22 14:34 36.6 C 70 18 126/84 98 Room Air 08/13/22 11:21 36.4 C L 70 18 128/64 98 Room Air 08/13/22 10:54 Room Air 08/13/22 10:05 71 18 96 Room Air 08/13/22 08:00 56 L 08/13/22 06:21 36.6 C 62 18 162/68 H 94 Room Air Medications Administered Current Inpatient Medications Acetaminophen (Acetaminophen 325 Mg Tab) 325 mg PO Q6H PRN PRN Reason: Mild Pain Stop: 09/11/22 01:49 Aspirin ([facility]in 81 Mg [facility]ab) [facility] [place]: 09/11/22 08:59 Last Admin: 08/13/22 08:58 Dose: 81 mg Atorvastatin Calcium (Atorvastatin 40 Mg Tab) 40 mg PO QAM [facility] Stop: 09/11/22 08:59 Last Admin: 08/13/22 08:59 Dose: 40 mg Benzonatate (Benzonatate 100 Mg Capsule) 100 mg PO TID PRN PRN Reason: Cough Stop: 09/11/22 20:20 Enoxaparin Sodium (Enoxaparin Inj 30 Mg/0.3 Ml Syr) 30 mg SQ QAM [facility] Stop: 09/11/22 08:59 Last Admin: 08/13/22 09:01 Dose: 30 mg Metronidazole (Flagyl) 500 mg in 100 mls @ 100 mls/hr IV Q8H [facility] Stop: 08/19/22 07:59 Last Infusion: 08/13/22 16:55 Dose: Infused Promethazine HCl 6.25 mg/ (Sodium Chloride) 50.25 mls @ 201 mls/hr IV Q6H PRN PRN Reason: Nausea And Vomiting Stop: 09/11/22 03:49 Last Infusion: 08/13/22 00:39 Dose: Infused Levofloxacin (Levofloxacin 500 Mg Tab) 500 mg PO Q24H [facility] Stop: 08/20/22 00:00 Last Admin: 08/13/22 00:42 Dose: 500 mg Levothyroxine Sodium (Levothyroxine Sodium 75 Mcg Tablet) 75 mcg PO DAILYBB [facility] Stop: 09/11/22 06:29 Last Admin: 08/13/22 05:50 Dose: 75 mcg Menthol (Cough Drop (Sugar Free) Charlene 24 Charlene/1 Box) 1 charlene BUCCAL TID PRN PRN Reason: Sore Throat Stop: 09/11/22 20:20 Last Admin: 08/13/22 00:22 Dose: 1 charlene Metoprolol Succinate (Metoprolol Succ 25mg Ext Rel Tab) 12.5 mg PO QAM [facility] Stop: 09/11/22 08:59 Last Admin: 08/13/22 08:58 Dose: 12.5 mg Polyethylene Glycol (Polyethylene (Miralax) 17 Gm Pack) 17 gm PO DAILY [facility] Stop: 09/12/22 08:59 Last Admin: 08/13/22 09:00 Dose: Not Given Sodium Chloride (Sodium Chlor 7% 4 Ml Neb) 4 ml NEB BIDR [facility] Stop: 09/12/22 18:59 (1) Abscess of lung Laterality: unspecified laterality Pulmonary abscess pneumonia presence: with pneumonia Qualified Code(s): J85.1 - Abscess of lung with pneumonia
[2022-08-13] MEDS: SODIUM CHLOR 7% 4 ML NEB NEB SCH (20:25)
[2022-08-14] MEDS: LEVOTHYROXINE SODIUM 75 MCG TABLET PO SCH (05:33)
[2022-08-14] MEDS: SODIUM CHLOR 7% 4 ML NEB NEB SCH (07:43)
[2022-08-14] MEDS: METOPROLOL SUCC 25MG EXT REL TAB PO SCH (08:05)
[2022-08-14] MEDS: ATORVASTATIN 40 MG TAB PO SCH (08:05)
[2022-08-14] MEDS: ASPIRIN 81 MG ECTAB PO SCH (08:06)
[2022-08-14] MEDS: metroNIDAZOLE 500 MG/100 ML BAG IV SCH (08:07)
[2022-08-14] MEDS: ENOXAPARIN INJ 30 MG/0.3 ML SYR SQ SCH (08:09)
[2022-08-14] MEDS: POLYETHYLENE (MIRALAX) 17 GM PACK PO SCH (08:10)
[2022-08-14 08:31] LABS: Basophils # (auto) 0.04 K/uL (0-0.2); Basophils % (auto) 0.2 %; Eosinophils # (auto) 0.08 K/uL (0-0.50); Eosinophils % (auto) 0.5 %; Hematocrit (blood only) 26.5 % (40.1-51.0); Hemoglobin 8.6 g/dl (14.0-18.0); Immature Granulocytes # (auto) 0.15 K/uL (0.00-0.02); Immature Granulocytes % (auto) 0.9 %; Lymphocytes # (auto) 1.23 K/uL (1.2-3.4); Lymphocytes % (auto) 7.2 %; Mean Corpuscular Hemoglobin 26.6 pg (25.0-34.0); Mean Corpuscular Hgb Conc 32.5 g/dL (32.0-36.0); Mean Platelet Volume 9.3 fL (9.4-12.4); Monocytes # (auto) 1.14 K/uL (0.24-0.82); Monocytes % (auto) 6.7 %; Neutrophils # (auto) 14.49 K/uL (1.4-6.5); Neutrophils % (auto) 84.5 %; Platelet Count 660 K/uL (130-400); RDW Coefficient of Variation 16.4 % (11.5-14.5); Red Blood Count 3.23 M/uL (4.63-6.08); White Blood Count 17.13 K/ul (4.8-10.8)
[2022-08-14 08:54] LABS: Albumin Globulin Ratio 0.7 (0.9-2); Albumin Level 2.2 gm/dl (3.4-5.0); BUN Creatinine Ratio 24.1 (10-20); Bilirubin,Total 0.5 mg/dl (0.2-1.0); Calcium 7.5 mg/dl (8.5-10.1); Creatinine Clr Calc Pharmacy 59.8 ml/min; Est GFR (African American) 100.4 ml/min; Est GFR (Non-African American) 86.6 ml/min; Globulin 3.3 gm/dl (2.5-4.0); Potassium 4.1 mmol/L (3.5-5.1); Total Protein 5.5 gm/dl (6.0-8.3)
[2022-08-14 12:06] LABS: Quantiferon Mitogen-NIL 0.57 IU/mL; Quantiferon NIL 0.04 IU/mL; Quantiferon TB Gold Plus NEGATIVE (NEGATIVE)
[2022-08-14] MEDS ORDERED: SODIUM CHLORIDE 1 GM TABLET PO ONE (13:26)
--- NOTE | 2022-08-14 13:39 | Hospitalist Progress Note ---
Date of Service August 14, 2022 Assessment & Plan (1) Abscess of lung: Plan: No overt sepsis currently. Right middle lobe of 5 cm multiloculated peripherally enhancing hypodensity containing a punctate focus of gas and Small bilateral lower lobes of 1.4 cm peripherally enhancing hypodense foci consistent with additional small abscesses Has been on oral Levaquin and IV Flagyl Appreciate pulmonary input and recommendation Clinically better and is improving Awaiting definitive TB test-definitive TB test have been negative Symptomatically much better and will be discharged home this afternoon He will have oral antibiotic for 4 weeks followed by a repeat CT chest with follow-up with the pulmonology Hyponatremia Multifactorial : 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 Third spacing, anasarca from possible right-sided heart failure, hx tricuspid regurgitation from TTE 2021 Sodium level remains low at 131-we will monitor Sodium level is 129-he was advised to stay another night to make sure is not trending down but he did not want to stay This was discussed with the daughter as well He still wanted to go home and accepted the risk of having low sodium and the subsequent consequences He was given 1 g sodium tablet orally and was advised to take extra salt in diet Was advised to keep follow-up appointment with the healthcare providers Acute on chronic anemia Hemoglobin drop from baseline ? Dilutional FOBT done at the ER negative Hemoglobin stable at 8.4 and 8.6 as of 08/14/2022 hx CVA/PVD HTN, BP on the lower side hyperlipidemia on statin Rx hx PSVT hypothyroidism, recent outpatient TSH slight elevated mood disorder, at baseline prediabetes, hemoglobin A1c of 5.03 February 2020 Medical telemetry given hyponatremia CS, Levaquin, Flagyl for pulmonary abscess, presumptive community-acquired infection Pulmonary consult RE lung abscess (ER provider already in touch with Dr. Babin). N.p.o. until patient seen by pretzel twister in a.m. in anticipation of procedure. As above Hyponatremia work-up Lasix Update TTE Nephrology consult if without improvement Sodium level is 129-he will be discharged home this afternoon and he is aware about the risk of low sodium and this was discussed with the daughter Anemia work-up Transfuse PRBC to maintain hemoglobin above 8 given history CVA DVT prophylaxis with Lovenox subcu DNR Patient request for daughter to updated of progress. Ms. Soco Hughes, contact #[phone]. Admission and Anticipated Discharge Date Admission Date: August 12, 2022 Subjective 08/13/2022 The patient was seen and examined in medical telemetry unit and in the isolation room He has been feeling much better and seems to be back to his baseline 08/14/2022 The patient was seen and examined in medical telemetry unit in presence of the daughter He has been feeling much better and is out of bed on a chair He does not want to stay any longer he wants to go home Denies any significant symptoms Review of Systems Review of Systems: All systems reviewed and are unremarkable except as noted below Respiratory: No shortness of breath at rest and the cough is diminished Physical Exam Physical Exam: Lying in bed comfortably without any apparent distress Constitutional: average body habitus; not ill appearing Eyes: PERRL, conjunctivae normal, anicteric sclerae ENMT: external ear and nose normal, oropharynx normal Neck: trachea midline, no thyromegaly Respiratory: no respiratory distress Auscultation: + diminished lung sounds and + crackles (Bilaterally) Cardiovascular: Rate/Rhythm: regular rate and regular rhythm; not tachycardic Heart Sounds: normal S1 and normal S2; no murmur Extremities: + edema (Trace edema bilateral) Gastrointestinal (Abdomen): Inspection/Auscultation: normal bowel sounds; abdomen not distended Percussion/Palpation: abdomen soft; abdomen nontender Musculoskeletal: No acute arthritis in any joints Neurologic: normal touch/pain/proprioception and moves all extremities; no focal motor deficits Psychiatric: A+Ox3, euthymic affect Lymphatic: no cervical or axillary lymphadenopathy Results & Data Results & Data ([facility]) Vital Signs (Past 12 Hours) Vital Signs Temp Pulse Pulse Resp BP Pulse Ox O2 Del Method 08/14/22 07:44 60 08/14/22 07:45 70 19 96 Room Air 08/14/22 03:11 36.7 C 73 18 145/73 H 94 Room Air Laboratory Results Short CBC 08/14/22 Range/Units 07:34 WBC 17.13 H (4.8-10.8) K/ul Hgb 8.6 L (14.0-18.0) g/dl Hct 26.5 L (40.1-51.0) % Plt Count 660 H (130-400) K/uL BMP 08/14/22 07:34 Sodium 129 L Potassium 4.1 Chloride 97 L Carbon Dioxide 27 BUN 19 Creatinine 0.79 Glucose 93 Calcium 7.5 L Liver Function 08/14/22 Range/Units 07:34 Total Bilirubin 0.5 (0.2-1.0) mg/dl AST 18 (13-39) U/L ALT 15 (7-52) U/L Alkaline Phosphatase 59 (34-104) U/L Albumin 2.2 L (3.4-5.0) gm/dl Medications Administered Current Inpatient Medications Acetaminophen (Acetaminophen 325 Mg Tab) 325 mg PO Q6H PRN PRN Reason: Mild Pain Stop: 09/11/22 01:49 Aspirin (Aspirin 81 Mg Ectab) 81 mg PO [facility] Stop: 09/11/22 08:59 Last Admin: 08/14/22 08:06 Dose: 81 mg Atorvastatin Calcium (Atorvastatin 40 Mg Tab) 40 mg PO [facility] Stop: 09/11/22 08:59 Last Admin: 08/14/22 08:05 Dose: 40 mg Benzonatate (Benzonatate 100 Mg Capsule) 100 mg PO TID PRN PRN Reason: Cough Stop: 09/11/22 20:20 Enoxaparin Sodium (Enoxaparin Inj 30 Mg/0.3 Ml Syr) 30 mg SQ [facility] Stop: 09/11/22 08:59 Last Admin: 08/14/22 08:09 Dose: 30 mg Metronidazole (Flagyl) 500 mg in 100 mls @ 100 mls/hr IV Q8H [facility] Stop: 08/19/22 07:59 Last Infusion: 08/14/22 09:20 Dose: Infused Promethazine HCl 6.25 mg/ (Sodium Chloride) 50.25 mls @ 201 mls/hr IV Q6H PRN PRN Reason: Nausea And Vomiting Stop: 09/11/22 03:49 Last Infusion: 08/13/22 00:39 Dose: Infused Levofloxacin (Levofloxacin 500 Mg Tab) 500 mg PO Q24H [facility] Stop: 08/20/22 00:00 Last Admin: 08/13/22 20:06 Dose: 500 mg Levothyroxine Sodium (Levothyroxine Sodium 75 Mcg Tablet) 75 mcg PO DAILYBB [facility] Stop: 09/11/22 06:29 Last Admin: 08/14/22 05:33 Dose: 75 mcg Menthol (Cough Drop (Sugar Free) Charlene 24 Charlene/1 Box) 1 charlene BUCCAL TID PRN PRN Reason: Sore Throat Stop: 09/11/22 20:20 Last Admin: 08/13/22 00:22 Dose: 1 charlene Metoprolol Succinate (Metoprolol Succ 25mg Ext Rel Tab) 12.5 mg PO QAM [facility] Stop: 09/11/22 08:59 Last Admin: 08/14/22 08:05 Dose: 12.5 mg Polyethylene Glycol (Polyethylene (Miralax) 17 Gm Pack) 17 gm PO DAILY [facility] Stop: 09/12/22 08:59 Last Admin: 08/14/22 08:10 Dose: Not Given Sodium Chloride (Sodium Chlor 7% 4 Ml Neb) 4 ml NEB BIDR [facility] Stop: 09/12/22 18:59 Last Admin: 08/14/22 07:43 Dose: 4 ml (1) Abscess of lung Laterality: unspecified laterality Pulmonary abscess pneumonia presence: with pneumonia Qualified Code(s): J85.1 - Abscess of lung with pneumonia
--- NOTE | 2022-08-14 15:52 | Electrocardiogram Report ---
Test Reason : Blood Pressure : / mmHG Vent. Rate : 066 BPM Atrial Rate : 066 BPM P-R Int : 138 ms QRS Dur : 084 ms QT Int : 428 ms P-R-T Axes : 048 067 058 degrees QTc Int : 448 ms Normal sinus rhythm Normal ECG When compared with ECG of 11-AUG-2022 20:21, No significant change was found Confirmed by Stephen Sheriff ([id number]) on 08/14/2022 3:51:46 PM Referred By: REFERRED SELF Confirmed By:Stephen Sheriff
--- NOTE | 2022-08-15 07:41 | Discharge Summary ---
Date of Service August 14, 2022 Admission HPI Per Admitting Provider History obtained from patient and records. Medical history significant for CVA, HTN, valvular heart disease (moderate TR, mild TR TTE 01/2022), hyperlipidemia, PSVT, PVD, hypothyroidism, mood disorder, prediabetes, chronic anemia (baseline hemoglobin of 11). Last confinement January 2022 for cerebellar stroke. 3 weeks ago, patient noted bilateral leg swelling without pain. Denies abdominal pain. No unusual weight gain as per patient. Denies black/bloody stools. Denies EtOH intake. Denies polydipsia. At about the same time, patient noted junky cough symptoms productive of yellow sputum. Some shortness of breath. Patient denies aspiration. Not sure about sick contacts. Patient seen at PCP's office yesterday. Inguinal adenopathy appreciated on provider exam along with leg swelling. TTE, Cardiology referral contemplated for bilateral leg edema. Patient instructed to take extra Lasix for next few days. Outpatient blood work and x-rays requested. Chest x-ray showed: 1. Lobar atelectasis of the right middle lobe. 2. Patchy opacification in the left lower lobe common, nonspecific, and could represent either airspace consolidation or subsegmental atelectasis. Abnormal outpatient labs noted hemoglobin noted to be 6.6, sodium 131, TSH 7.81., BNP noted to be 1000 LE venous Dopplers without DVT on both legs, Ramachandran's cyst on the left. CT abdomen pelvis showed 1. Dense consolidation within the right middle lobe, partially imaged on this exam. This contains a 4.1 x 3.7 cm rim-enhancing fluid collection suggestive of a pulmonary abscess, possibly in the setting of necrotizing pneumonia. Additional suspected 1.5 cm right lower lobe pulmonary abscess. Left lower lobe airspace opacity which favors pneumonia. These findings are likely infectious. A neoplastic process is within the differential but considered less likely. Mediastinal and hilar lymphadenopathy which is probably related reactive but can be assessed on chest CT. A CT of the chest with IV contrast is recommended. Pul monary consultation is suggested. Findings will be called/faxed to ordering provider at time of dictation. 2. Small right pleural effusion. 3. No bowel obstruction. No bowel wall thickening. 4. Mild left collecting system dilatation with several hypoenhancing foci within the left kidney. These findings could be chronic however pyelonephritis cannot be completely excluded and could be correlated with urinalysis. 5. 2 mm left renal calculus. No ureteral calculi. 6. Anasarca. Patient sent to the ER for evaluation Levaquin and Flagyl administered for lung abscess. 1 unit packed RBC transfused at the ER. Medical History as above Surgical History : Cataract surgery, hernia repair Family History : Heart disease, breast cancer, stroke Personal/Social history : Non-smoker, no EtOH intake, retired [employer] Admission Exam Per Admitting Provider Physical Exam: GENERAL: Comfortable, no respiratory distress SKIN: Pallor, warm HEENT: Alopecia, pale palpebral conjunctivae, no ptosis, dry buccal mucosa NECK : Supple, no tenderness CHEST : Decreased breath sounds, no tenderness HEART : RRR, no obvious murmurs ABDOMEN: Some distention, nontender EXTREMITIES : Bilateral LE swelling, no LE tenderness, no other conspicuous deformities noted NEUROLOGIC : Coherent, no facial asymmetry, no other gross focality Principal Diagnosis Lung abscess, hyponatremia, chronic anemia, history of PSVT Discharge Exam Lying in bed comfortably without any apparent distress Constitutional average body habitus; not ill appearing Eyes PERRL, conjunctivae normal, anicteric sclerae ENMT external ear and nose normal, oropharynx normal Neck trachea midline, no thyromegaly Respiratory no respiratory distress Auscultation: + diminished lung sounds and + crackles (Bilaterally) Cardiovascular Rate/Rhythm: regular rate and regular rhythm; not tachycardic Heart Sounds: normal S1 and normal S2; no murmur Extremities: + edema (Trace edema bilateral) Gastrointestinal (Abdomen) Inspection/Auscultation: normal bowel sounds; abdomen not distended Percussion/Palpation: abdomen soft; abdomen nontender Neurologic normal touch/pain/proprioception and moves all extremities; no focal motor deficits Psychiatric A+Ox3, euthymic affect Lymphatic no cervical or axillary lymphadenopathy Discharge Data Allergies Allergy/AdvReac Type Severity Reaction Status Date / Time cheese Allergy Abdominal Verified 08/14/22 12:18 Pain citalopram [From Celexa] Allergy Rash Verified 08/11/22 23:51 Penicillins Allergy Hives Verified 08/11/22 23:47 Consultations 08/11/22 23:25 ED Decision to Admit Stat 08/12/22 03:50 Consult Pulmonology Routine Ordered Studies 08/11/22 21:19 CT chest diagnostic w con Urgent Hospital Course (1) Abscess of lung: No overt sepsis currently. Right middle lobe of 5 cm multiloculated peripherally enhancing hypodensity containing a punctate focus of gas and Small bilateral lower lobes of 1.4 cm peripherally enhancing hypodense foci consistent with additional small abscesses Has been on oral Levaquin and IV Flagyl Appreciate pulmonary input and recommendation Clinically better and is improving Awaiting definitive TB test-definitive TB test have been negative Symptomatically much better and will be discharged home this afternoon He will have oral antibiotic for 4 weeks followed by a repeat CT chest with follow-up with the pulmonology Hyponatremia Multifactorial : 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 Third spacing, anasarca from possible right-sided heart failure, hx tricuspid regurgitation from TTE 2021 Sodium level remains low at 131-we will monitor Sodium level is 129-he was advised to stay another night to make sure is not trending down but he did not want to stay This was discussed with the daughter as well He still wanted to go home and accepted the risk of having low sodium and the subsequent consequences He was given 1 g sodium tablet orally and was advised to take extra salt in diet Was advised to keep follow-up appointment with the healthcare providers Acute on chronic anemia Hemoglobin drop from baseline ? Dilutional FOBT done at the ER negative Hemoglobin stable at 8.4 and 8.6 as of 08/14/2022 hx CVA/PVD HTN, BP on the lower side hyperlipidemia on statin Rx hx PSVT hypothyroidism, recent outpatient TSH slight elevated mood disorder, at baseline prediabetes, hemoglobin A1c of 5.03 February 2020 Medical telemetry given hyponatremia CS, Levaquin, Flagyl for pulmonary abscess, presumptive community-acquired inf ection Pulmonary consult RE lung abscess (ER provider already in touch with Dr. Babin). N.p.o. until patient seen by fiber worker in a.m. in anticipation of procedure. As above Hyponatremia work-up Lasix Update TTE Nephrology consult if without improvement Sodium level is 129-he will be discharged home this afternoon and he is aware about the risk of low sodium and this was discussed with the daughter Anemia work-up Transfuse PRBC to maintain hemoglobin above 8 given history CVA DVT prophylaxis with Lovenox subcu DNR Patient request for daughter to updated of progress. Ms. Soco Hughes, contact #[phone]. Total Time Total Time Spent Total Time Spent (In Minutes): 35 minutes Discharge Plan Discharge Items Patient Disposition: Home - Self-Care Reason For Visit: PNEUMONIA, HYPONATREMIA Discharge Diagnosis: Lung abscess, hyponatremia, chronic anemia, history of PSVT Condition on Discharge: Fair Activity: Resume your previous activity Non-emergency contact: Primary Care Provider Call non-emergency contact if: you have any medication questions and your symptoms worsen Follow-up/Referrals: Joo El DO [Physician] - (Date & Time 08/19/2022 11:00 AM Provider Joo El Jr., DO Department Cardiology, [facility] ) Renard Pratt MD [Physician] - (Date & Time 08/17/2022 10:00 AM Provider Renard Pratt MD Department General Surgery, [facility] ) Ismael Vasquez PA-C [Primary Care Provider] - (Date & Time 08/19/2022 4:00 PM Provider Salena Krishna MD Department General Internal Medicine [facility] ) Diet: Regular Fluids: 1500ml (6 cups) Addtl Attending Provider Instructions: Please take precautions to avoid falls Finish your antibiotic which will be taken for a total of 4 weeks You will need to have a repeat CT of the chest with contrast after completion of antibiotic and then follow-up with fiber worker Try probiotics [id number] Please give appointment with your healthcare providers Pending Studies at Discharge: No Stand-Alone Forms: My [facility] Compliance 11, Smoking Cessation Medications and DC Order Prescriptions: New levofloxacin 500 mg Tablet 500 mg PO Q24H 26 Days Qty: 26 0RF metronidazole 500 mg tablet 500 mg PO Q8H 26 Days Qty: 78 0RF Lactobacillus acidophilus 100 mg (1 billion cell) capsule 100 mg PO BID Qty: 60 0RF Continued levothyroxine 75 mcg tablet 75 mcg PO DAILY atorvastatin 40 mg Tablet 40 mg PO QAM Qty: 30 1RF alendronate 70 mg tablet 70 mg PO WK Rx Instructions: tuesdays metoprolol succinate 25 mg tablet extended release 24 hr 12.5 mg PO QAM calcium carbonate 500 mg calcium (1,250 mg) Tablet 500 mg PO QAM cholecalciferol (vitamin D3) [Vitamin D3] 25 mcg (1,000 unit) Tablet 25 mcg PO QAM aspirin 81 mg tablet,delayed release (DR/EC) 81 mg PO QAM Discontinued furosemide 20 mg tablet 20 mg PO UD Rx Instructions: take 2 tablets in the morning. start 08/11/22 x3 days then 1 tab daily Discharge Orders: Discharge Order (Routine); Ordered 08/14/22 Ordered By: Saleem Barclay Admission Data Admit Date/Time: 08/12/22 01:45 Attending Provider: Saleem Barclay Admit Provider: Luis Shaffer Primary Care Provider: Ismael Vasquez Other Providers: Luis Shaffer ; Prosper Babin Other Interventions: Discharge Summary Assessment (RN) Last Done: 08/14/22 15:14
== END 2022-08-14 16:40 | disposition home or self-care (01) | DRG 178 ==
LOC: ED 19:43 → 2N 08-12 03:15